=== PATIENT | male | born 1965 | race Caucasian/White ===

== ENCOUNTER 2018-07-06 08:18 | Day surgery (SDC) | payer OTHER, SELFPAY ==
--- NOTE | 2018-07-06 06:42 | W.PM.OP ---
Operative Note DATE OF PROCEDURE: 07/06/18 PRE-OP DIAGNOSIS: Dysphagia POST-OP DIAGNOSIS: other (Gastritis, gastric polyp, esophagitis) PROCEDURE: EGD with biopsies SURGEON: Gemini Mccauley ANESTHESIA: MAC (Fela Ruiz CRNA) ESTIMATED BLOOD LOSS: 3 PATHOLOGY: other (Antrum bx, GE junction bx) COMPLICATIONS: None Patient was transported to: same day Patient's condition: stable Indications: Mr. angeles is a 53-year-old gentleman who was seen in the office to discuss an upper endoscopy. The patient complains of dysphasia. Risks, benefits, complications of the procedure were reviewed with him and he wished to proceed. No guarantees were given or implied. Findings: mild gastritis moderate esophagitis Procedure Description: After informed consent was obtained the patient was taken to the procedure room and placed in a supine position. Monitors were applied and a time out was done. The patients name, date of , procedure, allergies to medications and metal in their body was reviewed. The patient was then sedated. Once sedated and comfortable the bite block was placed. The scope was then introduced into the orpharynx. The oropharynx was grossly intact. The scope was advanced into the esophagus. Proximal and mid esophagus were normal. Distal esophagus showed inflammation. Z line was at 40 cm at the lip. It was slightly irregular. The scope was advanced into the stomach and through the pylorus into the duodenum. The duodenum was normal. The scope was retracted back into the stomach. Biopsies of the antrum were done to rule out H. pylori. The scope was retroflexed. The cardia and fundus were normal. There was one polyp in the body of the stomach and this was removed with cold forceps. The scope was retracted back into the esophagus and biopsies of the GE junction were done for surveillance of his Reese's. The scope was removed. The patient tolerated the procedure well and there were no immediate complications. Follow up: The patient should follow up in 3 weeks in the office.
--- NOTE | 2018-07-06 06:53 | PDOC.DSDIS_ITS ---
Discharge Plan Disposition Patient Disposition: HOME Discharge Details Attending Provider: Gemini Mccauley Primary Care Provider: Parish Russell Home Meds and New Rx's Prescriptions: New ranitidine HCl 300 mg tablet 300 mg PO QAM Qty: 30 RF: 2 Continue atorvastatin 40 mg tablet 40 mg PO HS RF: 0 azithromycin 250 mg tablet See Label Instructions PO .COMPLEX Qty: 6 RF: 0 divalproex [Depakote ER] 500 mg tablet extended release 24 hr 1,000 mg PO DAILY Qty: 90 RF: 3 carbamazepine 200 mg tablet extended release 12 hr 200 mg PO DAILY Qty: 90 RF: 3 aspirin 81 MG tablet,chewable 81 mg PO DAILY Qty: 30 RF: 0 Changed pantoprazole 40 MG tablet,delayed release (DR/EC) 40 mg PO HS 90 Days Qty: 180 RF: 3 Discharge Instructions Instructions: Upper Endoscopy (DC), Gastritis (DC), Diet for Stomach Ulcers and Gastritis (GEN), Esophagitis (DC) Additional Instructions: Findings: Mild inflammation of the stomach Gastric polyp Moderate inflammation of the esophagus Follow up: 3 weeks New Medications: Zantac 300 mg in the morning Pantoprazole 40 mg in the morning Please call if you develop: fevers >101.5 Nausea or Vomiting Abdominal pain that is not transient 1. Because there will be medication in your system for the next 24 hours, you may feel a little sleepy. Your coordination will be affected. Therefore: a. Do not drive or operate dangerous equipment for 24 hours. b. Do not drink alcohol beverages for 24 hours (not even beer). c. Plan to go home and rest for the day. 2. Generally there are no restrictions on your activity after a day or so has gone by, but you may feel a bit fatigued for a few days. 3 After you arrive home you may have a light meal and return to a normal diet as you can tolerate it without feeling sick to your stomach. 4. After surgery, you may feel pain or discomfort. This should be only transient , but if it persists please contact your doctor. 5. If there are any questions regarding the findings of your procedure, please feel free to contact your doctor. 6. If you are unable to contact your doctor with a problem, contact the hospital at [phone]. 7. Continue all your regular medications unless directed otherwise. I understand the above instructions and have no questions. Signature of Patient or Responsible Adult Escort Date/Time Name of Responsible Adult Escort Signature of Nurse Date/Time Activity:: Activity as Tolerated Diet:: low acid diet Discharge Orders Discharge Orders: Discharge Order (Routine); Ordered 07/06/18 Ordered By: Gemini Mccauley DS: Diagnosis Discharge Diagnosis (1) Gastroesophageal reflux disease with esophagitis: Status: Acute (2) Barretts esophagus: Status: Chronic
[2018-07-06 08:29] VITALS: BP 127/73; PULSE 80; RESP 16; TEMP 36.6; O2SAT 96
[2018-07-06] MEDS: Lactated Ringers 1,000 ML 80 ML IV (09:00)
--- NOTE | 2018-07-06 10:28 | STOM_PTH ---
PATIENT: Donavan Pool LOC: [facility] U#:[id number] AGE/SX: 53/M ROOM: RE07/06/[address]: Gemini Mccauley MD : [id number] BED: DIS: 07/06/2018 SPEC #: [id number] RECD: 07/06/18 12:41 STATUS: [facility] REQ #: [id number] VITA: 07/06/18 10:[address]: Gemnii Mccauley DEPT: Surgical Specimen RECD BY: Misty Scott ENTERED: 07/06/18 12:42 SP TYPE: STOMACH OTHR DR: Parish Russell MD Tissues: 1 - STOMACH BIOPSY 2 - STOMACH BIOPSY 3 - ESOPHAGUS BIOPSY Procedures: GROSS AND MICRO LEVEL 4 Comments: [id number]
[2018-07-06 11:10] VITALS: BP 137/91; PULSE 62; RESP 16; TEMP 35.9; O2SAT 98
== END 2018-07-06 11:15 | disposition home or self-care (01) ==
LOC: SUR 08:18
PROVIDERS: PCP Family Medicine; Visit Provider Surgery
PROC: 0DJ68ZZ Inspection of Stomach, Via Natural or Artificial Opening Endoscopic (ICD-10-PCS; CPT 43235; principal; 2018-07-06 10:00)
DX: R13.10 Dysphagia, unspecified (principal); K22.70 Barrett's esophagus without dysplasia; K31.89 Other diseases of stomach and duodenum
CPT/HCPCS: 43239; 88305

== ENCOUNTER 2019-12-20 02:35 | Outpatient (CLI) | payer OTHER, SELFPAY ==
[2019-12-20 15:54] LABS: VALPROIC ACID 23.1 ug/mL (50-100)
[2019-12-20 15:55] LABS: TROPONIN-I 3.1 ug/mL (4.0-12.0)
== END 2019-12-20 02:55 ==
PROVIDERS: PCP Family Medicine; Visit Provider Family Medicine
DX: G40.909 Epilepsy, unspecified, not intractable, without status epilepticus (principal); Z51.81 Encounter for therapeutic drug level monitoring; Z79.899 Other long term (current) drug therapy
CPT/HCPCS: 36415; 80156; 80164

== ENCOUNTER 2020-01-18 22:40 | Outpatient (REF) | payer OTHER, SELFPAY ==
[2020-01-18 20:12] LABS: HGB 15.1 g/dL (13.5-17.5); Mean Corp. HGB Concentration 33.6 g/dL (32.0-36.0); Mean Corpuscular Volume 86.4 fL (80-95); Mean Platelet Volume 11.1 fL (8.0-11.0); Platelet Count 224 x1000/uL (130-400); RBC 5.21 m/cumm (4.50-6.00); RBC Distribution Width 12.6 % (11.8-14.1); White Blood Cell Count 6.17 k/cumm (4.4-10.8)
[2020-01-18 20:20] LABS: Anion Gap 9.5 mmol/L (3-11); BUN 14 mg/dL (7-18); CO2 25.5 mmol/L (21.0-32.0); CREATININE 0.95 mg/dL (0.70-1.30); Calcium 9.3 mg/dL (8.5-10.1); Chloride 103 mmol/L (98-107); Glucose 96 mg/dL (74-106); Potassium 4.2 mmol/L (3.5-5.1); Sodium 138 mmol/L (136-145)
== END 2020-01-18 23:00 ==
LOC: LBN 22:40
PROVIDERS: PCP Family Medicine; Visit Provider Nurse Practitioner
DX: R10.9 Unspecified abdominal pain (principal)
CPT/HCPCS: 80048; 85027

== ENCOUNTER 2020-06-29 12:12 | Emergency (ER) | payer OTHER, SELFPAY ==
[2020-06-29 12:16] VITALS: BP 139/96; PULSE 86; RESP 16; TEMP 36.9; O2SAT 95
--- NOTE | 2020-06-29 12:45 | DI.CT_ITS ---
EXAM: CT HEAD WO CLINICAL HISTORY: headache, r/o acute process. TECHNIQUE: Imaging Protocol: Axial computed tomography images with coronal and sagittal reformatted images were created and reviewed COMPARISON: No exams were available for comparison FINDINGS: Ventricles and Extra axial spaces: Normal in size and morphology for the patient's age. Hemorrhage: None. Cerebral parenchyma: Normal. Midline shift: None. Brainstem/Cerebellum: Normal. Calvarium: Normal. Visualized Paranasal sinuses/Mastoids: Clear. Soft Tissues: Unremarkable. IMPRESSION: No acute intracranial process. RADIATION DOSE DELIVERED: 734.78mGy.cm Total DLP DATA REPOSITORY: All CT scans at this facility are submitted to the National Radiology Data Registry (NRDR) Dose Index Registry (DIR) with the [employer] (ACR). RADIATION OPTIMIZATION: All CT scans at this facility use at least one of these dose optimization te chniques: automated exposure control; mA and/or kV adjustment per patient size (includes targeted exa ms where dose is matched to clinical indication); or iterative reconstruction.
--- NOTE | 2020-06-29 12:49 | W.ED.GENAD ---
Discharge Plan Disposition Patient Disposition: HOME Condition: Improving Discharge Details Clinical Impression: Headache, Sciatica Primary Care Provider: Parish Russell ED Provider: Lyla Gauthier Home Meds and New Rx's Prescriptions: New methocarbamol 500 mg tablet 500 mg PO Q6H PRN (Reason: muscle spasm) Qty: 14 RF: 0 Continued albuterol sulfate [Ventolin HFA] 90 mcg/actuation HFA aerosol inhaler 1 - 2 puff IH Q4H PRN (Reason: shortness of breath or wheezing) Qty: 8.5 RF: 0 fluticasone propionate 50 mcg/actuation spray,suspension 2 spray LINDSAY DAILY RF: 0 divalproex [Depakote ER] 500 mg tablet extended release 24 hr 1,000 mg PO DAILY Qty: 180 RF: 3 pantoprazole 40 mg tablet,delayed release (DR/EC) 40 mg PO HS 90 Days Qty: 180 RF: 3 carbamazepine 200 mg tablet extended release 12 hr 200 mg PO DAILY Qty: 90 RF: 3 Discharge Instructions Instructions: Sciatica (ED), Back Pain (ED), General Headache (ED) Additional Instructions: Drink plenty of fluids and get plenty of rest. Alternate ice and heat to the affected area(s) several times daily for 20 minutes at a time. Alternate tylenol and motrin as needed and directed for pain. Take the muscle relaxer to help with your lower back pain for pain not relieved with Tylenol or Motrin. Follow-up with your primary care doctor in 1 week. Return to the emergency department with any worsening or new concerning symptoms. Stand Alone Forms: Work Release Discharge Data Discharge Physician: Lyla Gauthier Medical Decision Making 1220 -- 55-year-old male with a history of GERD, hyperlipidemia, seizure disorder presents for headache, nausea and lower back pain with radiation to his left leg for the past 2 days. Vitals within normal limits. Patient appears uncomfortable but nontoxic. Normal ENT exam. Lungs clear. No focal deficits. No meningeal signs. Neurovascular intact. Differential diagnosis includes viral syndrome, flu shot reaction, dehydration, etc. History and presentation not consistent with acute CVA. Will place an IV, bolus IV fluids, screening labs, CT head, and give a dose of Decadron, Compazine, Benadryl and reassess. CT head negative. Patient feels slightly better. Will give a dose of Toradol and finish IV fluids and reassess. 1400 --labs and imaging reviewed and unremarkable. Normal white blood cell count. ESR 13. CRP 0.66. CT head negative. Patient reassessed and he feels slightly better. Appears quite sleepy, suspect from the Benadryl. Will give additional IV fluids and Toradol and reassess. 1530 --patient reassessed and he states his headache is decreased from 8/10-/. Patient states he still feels pressure on the top of his head. He denies any visual changes. He denies thunderclap sudden onset quality to headache so doubt SAH. He has normal white blood cell count and afebrile without report of neck pain or fever or meningeal signs so doubt meningitis. Patient was able to ambulate to and from the bathroom. He still feels slightly uncomfortable but nontoxic. Will give another liter of IV fluids and obtain a CTA head and neck and reassess. 174 --CTA head and neck negative for acute findings. Patient reassessed and he feels better and feels good to go home. A dose of IV Tylenol given to help with continued headache. Medical Records Medical records reviewed: Yes I reviewed the patient's medical records. Imaging Data Radiologic Study: Radiologist's impression: CT HEAD WO CLINICAL HISTORY: headache, r/o acute process. TECHNIQUE: Imaging Protocol: Axial computed tomography images with coronal and sagittal reformatted images were created and reviewed COMPARISON: No exams were available for comparison FINDINGS: Ventricles and Extra axial spaces: Normal in size and morphology for the patient's age. Hemorrhage: None. Cerebral parenchyma: Normal. Midline shift: None. Brainstem/Cerebellum: Normal. Calvarium: Normal. Visualized Paranasal sinuses/Mastoids: Clear. Soft Tissues: Unremarkable. IMPRESSION: No acute intracranial process. Lab Data Lab results reviewed: Yes I reviewed the patient's lab results. Labs: Laboratory Tests Range/Units 06/29/20 06/29/20 12:47 13:49 WBC (4.4-10.8) 10^3/uL 8.69 RBC (4.36-5.78) 10^6/uL 5.39 Hgb (13.5-17.5) g/dL 15.8 Hct (40.0-50.0) % 47.4 MCV (80-95) fL 87.9 MCH (27.0-33.0) pg 29.3 MCHC (32.0-36.0) % 33.3 RDW (11.8-14.1) % 12.1 Plt Count (130-400) 10^3/uL 220 MPV (8.0-11.0) fL 10.4 Immature Gran % 0.2 Neutrophils % 70.9 Lymphocytes % 15.2 Monocytes % 12.4 Eosinophils % 0.8 Basophils % 0.5 Nucleated RBC % % 0 Absolute Neutrophils (1.2-6.7) 10^3/uL 6.16 Absolute Lymphocytes (1.2-3.4) 10^3/uL 1.32 Absolute Monocytes (0.1-0.8) 10^3/uL 1.08 H Absolute Eosinophils (0.0-0.7) 10^3/uL 0.07 Absolute Basophils (0.0-0.2) 10^3/uL 0.04 ESR (1-20) mm/hr 13 Sodium (136-145) mmol/L 134 L Potassium (3.5-5.1) mmol/L 3.7 Chloride (98-107) mmol/L 102 Carbon Dioxide (21.0-32.0) mmol/L 22.2 Anion Gap (3-11) mmol/L 9.8 BUN (7-18) mg/dL 14 Creatinine (0.70-1.30) mg/dL 0.94 Estimated GFR/1.73 m2 (mL/min/1.73m2) >= 60.00 Glucose (74-106) mg/dL 96 Calcium (8.5-10.1) mg/dL 8.5 Total Bilirubin (0.2-1.0) mg/dL 0.6 AST (15-37) U/L 25 ALT (16-63) U/L 41 Alkaline Phosphatase (46-116) U/L 82 C-Reactive Protein (0.0-0.3) mg/dL 0.66 H Total Protein (6.4-8.2) g/dL 7.5 Albumin (3.4-5.0) g/dL 3.7 HPI General Mode of arrival: ambulatory. Date/Time Provider Initiated Documentation: 06/29/20 12:13. Limitations to Documentation: no limitations. Information obtained by: patient. HPI Narrative: Pt is a 55yo M who presents to the ED w/ a c/o headache for the past 2 days. Patient states the headache is throbbing and sharp located on the top of his head and currently 8/10. He last took Tylenol last night without relief. He states he has had headaches in the past before but states this is more intense and lasting longer than usual. He has not taken any medication for pain today. He also admits to nausea and pain behind both eyes. He states he went to work yesterday but not today. Patient states he drank 2 cups of coffee and one bottle of water today but only one sip of water today. He also admits to lower back pain with radiation down his left leg for the past several days. He states he has a history of lower back pain and denies any recent injury. He denies fever, blurry vision, ear pain, sore throat, cough, shortness of breath, chest pain, abdominal pain, urinary symptoms, bowel or bladder incontinence, saddle anesthesia, leg weakness or numbness. Related Data Home Medications Medication Instructions Recorded Confirmed albuterol sulfate 90 mcg/actuation 1 - 2 puff IH Q4H PRN #8.5 gm 08/11/19 06/29/20 aerosol inhaler fluticasone propionate 50 2 spray LINDSAY DAILY gm 08/18/19 06/29/20 mcg/actuation nasal spray,suspension divalproex 500 mg tablet,extended 1,000 mg PO DAILY #180 tab-cap 02/01/20 06/29/20 release 24 hr pantoprazole 40 mg tablet,delayed 40 mg PO HS 90 Days #180 tab-cap 03/15/20 06/29/20 release carbamazepine 200 mg 200 mg PO DAILY #90 tab-cap 03/17/20 06/29/20 tablet,extended release,12 hr methocarbamol 500 mg PO Q6H PRN #14 tab 06/29/20 Previous Rx's Medication Instructions Recorded albuterol sulfate 90 mcg/actuation 1 - 2 puff IH Q4H PRN #8.5 gm 08/11/19 aerosol inhaler divalproex 500 mg tablet,extended 1,000 mg PO DAILY #180 tab-cap 02/01/20 release 24 hr pantoprazole 40 mg tablet,delayed 40 mg PO HS 90 Days #180 tab-cap 03/15/20 release carbamazepine 200 mg 200 mg PO DAILY #90 tab-cap 03/17/20 tablet,extended release,12 hr methocarbamol 500 mg PO Q6H PRN #14 tab 06/29/20 Allergies Allergy/AdvReac Type Severity Reaction Status Date / Time pantoprazole Allergy Intermediate shortness Verified 06/29/20 12:20 of breath, chest pain General Stated Complaint: Headache XAVIER: 2 Review of Systems All systems reviewed & are unremarkable except as noted in HPI and below Constitutional Constitutional: Reports as per HPI, Denies chills, Denies fever(s) and Reports headache(s) Eyes Eyes: Denies blurry vision ENT Ears, Nose, Mouth, and Throat: Denies dizziness, Reports headache(s), Denies sore throat and Denies throat swelling Cardiovascular Cardiovascular: Denies chest pain and Denies dyspnea Respiratory Respiratory: Denies cough and Denies dyspnea Gastrointestinal Gastrointestinal: Denies abdominal pain, Denies diarrhea, Reports nausea and Denies vomiting Genitourinary Genitourinary: Denies hematuria and Denies dysuria Musculoskeletal Musculoskeletal: Denies back pain and Denies numbness Integumentary/Breasts Skin/Breast: Denies lesions and Denies rash Neurologic Neurologic: Denies dizziness, Reports headache(s), Denies localized weakness and Denies numbness Allergic/Immunologic Allergic/Immunologic: Denies throat swelling [facility] Medical History (Updated 06/29/20 @ 18:05 by Lyla aGuthier DO) Abdominal pain (02/18/13) Barretts esophagus Bone bruise (09/11/15) Chest pain (11/06/17) precordial Erectile dysfunction of organic origin (07/29/16) Gastroesophageal reflux disease with esophagitis Generalized epilepsy Hiatal hernia Hyperlipidemia Seizure disorder (02/26/13) same meds check levels Small bowel obstruction (02/26/13) 02/18 Tendonitis, Achilles, left (11/24/17) Surgical History EGD - MAC (04/02/13) [facility] [place] EGD - MAC (07/24/16) [facility] [place] History of esophagogastroduodenoscopy (EGD) (~07/06/18) Family History Mother No problems noted. Father No problems noted. Sister No problems noted. Sister No problems noted. Grandfather Personal history of malignant neoplasm COLON Grandfather No problems noted. Grandmother Diabetes Grandmother No problems noted. Daughter No problems noted. 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 What type of physical activity do you participate in: none Do you feel safe in your relationship?: Yes Exam Const General: cooperative and no acute distress Orientation: alert, awake and oriented x3 HENMT Head: normal to inspection Ears: hearing grossly normal bilaterally, external ears normal and TM's normal bilaterally General nose exam: external nose normal Face and sinus: normal facial exam Mouth: oral mucosae normal Teeth and gingiva: dentition normal Throat: posterior oropharynx normal Eyes General: appearance normal, both eyes and all related structures Eyelids: eyelids normal Pupils: PERRL EOM: EOM intact bilaterally Neck Neck: normal visual inspection Lymphatic: no lymphadenopathy noted Chest Chest: normal inspection of the chest Resp Effort & Inspection: normal respiratory effort and able to speak in complete sentences Auscultation: clear to auscultation bilaterally Cardio Rate: regular rate Rhythm: regular rhythm GI Inspection: normal to inspection Palpation: soft, not firm, no guarding, no hepatosplenomegaly, no masses and nontender Auscultation: normal bowel sounds Back/Spine/Pelvis Back: no CVA tenderness Skin General skin exam: no rashes or lesions noted Neuro General: patient alert, patient awake, patient oriented x3, moves all extremities, no meningeal signs and no focal motor deficits Cognition: normal cognition Speech: speech normal Gait: normal gait Motor: muscle tone normal throughout and strength 5/5 throughout Sensory Exam: no sensory deficits noted Extrem General: normal to inspection, full ROM, capillary refill normal and no edema Psych Appearance: grossly normal Mental Status: mental status grossly normal Speech and Movement: speech and movement normal Affect: normal affect Thought Process: normal Course Vital Signs Vital signs: Vital Signs Temperature 98.4 F 06/29/20 12:16 Pulse 86 06/29/20 12:16 Respiratory Rate 16 06/29/20 12:16 Blood Pressure 139/96 H 06/29/20 12:16 Pulse Oximetry 95 06/29/20 12:16 Temperature 98.4 F 06/29/20 12:16 Temperature Source Skin 06/29/20 12:16 Pulse 86 06/29/20 12:16 Respiratory Rate 16 06/29/20 12:16 Respiratory Effort Non-Labored 06/29/20 12:16 Blood Pressure 139/96 H 06/29/20 12:16 Blood Pressure Position Sitting 06/29/20 12:16 Pulse Oximetry 95 06/29/20 12:16 Oxygen Delivery Method Room Air 06/29/20 12:16 Oxygen Flow Rate 0 06/29/20 12:16 Pain Level 8 06/29/20 12:16
[2020-06-29 13:04] LABS: Abs Immature Grans 0.02 10^3/uL (0.0-0.06); Absolute Basophil Count 0.04 10^3/uL (0.0-0.2); Absolute Eosinophil Count 0.07 10^3/uL (0.0-0.7); Absolute Lymphocyte Count 1.32 10^3/uL (1.2-3.4); Absolute Monocyte Count 1.08 10^3/uL (0.1-0.8); Absolute Neutrophil Count 6.16 10^3/uL (1.2-6.7); Basophils % 0.5; Eosinophils % 0.8; HCT 47.4 % (40.0-50.0); HGB 15.8 g/dL (13.5-17.5); Immature Grans % 0.2; Lymphocytes % 15.2; MCH 29.3 pg (27.0-33.0); MCHC 33.3 % (32.0-36.0); MCV 87.9 fL (80-95); MPV 10.4 fL (8.0-11.0); Monocytes % 12.4; Neutrophils % 70.9; Nucleated RBC 0 %; Platelet Count 220 10^3/uL (130-400); RBC 5.39 10^6/uL (4.36-5.78); RDW 12.1 % (11.8-14.1); WBC 8.69 10^3/uL (4.4-10.8)
[2020-06-29] MEDS: Normal Saline 1,000 ML 1000 ML IV ×3 (13:17→16:06)
[2020-06-29] MEDS: Prochlorperazine 10 MG/2 ML VIAL IVP (13:17)
[2020-06-29] MEDS: diphenhydrAMINE 50 MG/ML VIAL 25 MG IVP (13:17)
[2020-06-29] MEDS: Dexamethasone 10 MG/ML VIAL IVP (13:17)
[2020-06-29 13:42] LABS: ESR 13 mm/hr (1-20)
[2020-06-29 14:08] LABS: ALT 41 U/L (16-63); AST 25 U/L (15-37); Albumin 3.7 g/dL (3.4-5.0); Alkaline Phosphatase 82 U/L (46-116); Anion Gap 9.8 mmol/L (3-11); BUN 14 mg/dL (7-18); Bilirubin, Total 0.6 mg/dL (0.2-1.0); C-Reactive Protein 0.66 mg/dL (0.0-0.3); CO2 22.2 mmol/L (21.0-32.0); CREATININE 0.94 mg/dL (0.70-1.30); Calcium 8.5 mg/dL (8.5-10.1); Chloride 102 mmol/L (98-107); Glucose 96 mg/dL (74-106); Potassium 3.7 mmol/L (3.5-5.1); Sodium 134 mmol/L (136-145); Total Protein 7.5 g/dL (6.4-8.2)
[2020-06-29] MEDS: Ketorolac 30 MG/ML VIAL IVP (14:13)
[2020-06-29 14:31] VITALS: BP 160/91; PULSE 91; RESP 16; TEMP 37.1; O2SAT 98
[2020-06-29] MEDS: Normal Saline - Diluent 50 ML VIAL IV (16:49)
[2020-06-29] MEDS: Omnipaque 350 MG/ML 100 ML BTL IJ (16:50)
--- NOTE | 2020-06-29 17:04 | DI.VRAD_ITS ---
PROCEDURE INFORMATION: Exam: CT Angiography Head With Contrast Exam date and time: 06/29/2020 3:56 PM Age: 55 years old Clinical indication: Pain; Headache TECHNIQUE: Imaging protocol: Computed tomography angiography of the head with intravenous contrast. 3D rendering (Not supervised by radiologist): MIP and/or 3D reconstructed images were created by the technologist. Radiation optimization: All CT scans at this facility use at least one of these dose optimization techniques: automated exposure control; mA and/or kV adjustment per patient size (includes targeted exams where dose is matched to clinical indication); or iterative reconstruction. Contrast material: OMNIPAQUE 350; Contrast volume: 85 ml; Contrast route: INTRAVENOUS (IV); COMPARISON: CT HEAD WO 06/29/2020 1:29 PM FINDINGS: ANTERIOR CIRCULATION: Right internal carotid artery: Unremarkable. Intracranial segment is patent with no significant stenosis. No aneurysm. Right middle cerebral artery: Unremarkable. No occlusion or significant stenosis. No aneurysm. Right anterior cerebral artery: Unremarkable. No occlusion or significant stenosis. No aneurysm. Left internal carotid artery: Unremarkable. Intracranial segment is patent with no significant stenosis. No aneurysm. Left middle cerebral artery: Unremarkable. No occlusion or significant stenosis. No aneurysm. Left anterior cerebral artery: Unremarkable. No occlusion or significant stenosis. No aneurysm. POSTERIOR CIRCULATION: Right vertebral artery: Unremarkable. No occlusion or significant stenosis. No aneurysm. Left vertebral artery: Unremarkable. No occlusion or significant stenosis. No aneurysm. Basilar artery: Unremarkable. No occlusion or significant stenosis. No aneurysm. Right posterior cerebral artery: Unremarkable. No occlusion or significant stenosis. No aneurysm. Left posterior cerebral artery: Unremarkable. No occlusion or significant stenosis. No aneurysm. Brain: No definite mass, mass effect, or midline shift. Cerebral ventricles: Normal. No ventriculomegaly. Bones/joints: Unremarkable. No acute fracture. Soft tissues: Unremarkable. IMPRESSION: No large vessel stenosis or occlusion. PROCEDURE INFORMATION: Exam: CT Angiography Neck With Contrast Exam date and time: 06/29/2020 3:56 PM Age: 55 years old Clinical indication: Pain; Headache TECHNIQUE: Imaging protocol: Computed tomography angiography of the neck with intravenous contrast. 3D rendering (Not supervised by radiologist): MIP and/or 3D reconstructed images were created by the technologist. Radiation optimization: All CT scans at this facility use at least one of these dose optimization techniques: automated exposure control; mA and/or kV adjustment per patient size (includes targeted exams where dose is matched to clinical indication); or iterative reconstruction. Contrast material: OMNIPAQUE 350; Contrast route: INTRAVENOUS (IV); COMPARISON: CT HEAD WO 06/29/2020 1:29 PM FINDINGS: Right common carotid artery: No stenosis. No dissection or occlusion. Right internal carotid artery: No stenosis of the extracranial segment. No dissection or occlusion. Right external carotid artery: No occlusion or stenosis of the origin. Right vertebral artery: No stenosis. No dissection or occlusion. Left common carotid artery: No stenosis. No dissection or occlusion. Left internal carotid artery: No stenosis of the extracranial segment. No dissection or occlusion. Left external carotid artery: No occlusion or stenosis of the origin. Left vertebral artery: No stenosis. No dissection or occlusion. Bones/joints: No acute fracture. Soft tissues: Normal. No significant soft tissue swelling. IMPRESSION: No stenosis or occlusion. REFERENCES: NASCET CRITERIA. The degree of internal carotid artery stenosis is based on NASCET criteria. Normal is no stenosis. Mild is less than 50% stenosis. Moderate is 50-69% stenosis. Severe is 70% to 99% stenosis. Total occlusion is no detectable patent lumen. Dictated and Authenticated by: Dinora Turner MD. Ordering:TEN Arita MD
[2020-06-29] MEDS: ACETAMINOPHEN 1,000 MG/100 ML BTL 400 MG IVPB (17:29)
[2020-06-29 18:00] VITALS: BP 141/91; PULSE 92; RESP 16; TEMP 36.9; O2SAT 98
--- NOTE | 2020-06-29 19:48 | DI.CT_ITS ---
EXAM: CT BRAIN NECK CTA CLINICAL HISTORY: headache, r/o acute process. TECHNIQUE: Imaging Protocol: Axial CT angiography was performed with multi-slice acquisition and mu lti-planar and/or 3D reconstructions. CONTRAST MATERIAL: Intravenous: Omnipaque 350 Contrast volume:85 cc COMPARISON: CT CHEST FOR PULMONARY EMBOLUS from 11/06/2017 FINDINGS: CTA Brain W: Internal Carotid Arteries: Petrous: Normal. Cavernous: Normal. Cerebral: Normal. Middle Cerebral Arteries: Right: No aneurysm, occlusion or significant stenosis. Left: No aneurysm, occlusion or significant stenosis. Anterior Cerebral Arteries: Right: No aneurysm, occlusion or significant stenosis. Left: No aneurysm, occlusion or significant stenosis. Posterior cerebral Arteries: Right: No aneurysm, occlusion or significant stenosis. Left: No aneurysm, occlusion or significant stenosis. Vertebral Arteries: Right: No aneurysm, occlusion or significant stenosis. Left: No aneurysm, occlusion or significant stenosis. Basilar Artery: No aneurysm, occlusion or significant stenosis. CTA Neck W: Common Carotid: Right: No aneurysm, dissection, occlusion or significant stenosis. Left: No aneurysm, dissection, occlusion or significant stenosis. External Carotid: Right: No aneurysm, dissection, occlusion or significant stenosis. Left: No aneurysm, dissection, occlusion or significant stenosis. Internal Carotid: Right: No aneurysm, dissection, occlusion or significant stenosis. Left: No aneurysm, dissection, occlusion or significant stenosis. Vertebral Artery: Right: No aneurysm, dissection, occlusion or significant stenosis. Left: No aneurysm, dissection, occlusion or significant stenosis. Lung Apices: Normal. Bones: Normal. Soft Tissues: Normal. IMPRESSION: 1. Normal CTA examination of the [place]. 2. Normal CTA examination of the neck. RADIATION DOSE DELIVERED: 332.35mGy.cm Total DLP DATA REPOSITORY: All CT scans at this facility are submitted to the National Radiology Data Registry (NRDR) Dose Index Registry (DIR) with the [employer] (ACR). RADIATION OPTIMIZATION: All CT scans at this facility use at least one of these dose optimization te chniques: automated exposure control; mA and/or kV adjustment per patient size (includes targeted exa ms where dose is matched to clinical indication); or iterative reconstruction.
== END 2020-06-29 18:10 | disposition home or self-care (01) ==
PROVIDERS: Emergency Provider Physician Assistant; PCP Family Medicine
DX: M54.42 Lumbago with sciatica, left side (principal); R51.9 Headache, unspecified; R11.0 Nausea
CPT/HCPCS: 36415; 70496; 70498; 80053; 85652; 96361; 96365; 96375; 99285; 70450; 85025; 86140; J0131; J0780; J1100; J1200; J1885; J3490

== ENCOUNTER 2020-07-02 20:32 | Emergency (ER) | payer OTHER, SELFPAY ==
[2020-07-02 20:44] VITALS: BP 131/80; PULSE 78; RESP 16; O2SAT 93
--- NOTE | 2020-07-02 20:45 | DI.CT_ITS ---
EXAM: CT LUMBAR SPINE W CLINICAL HISTORY: headache, altered, seizure, positive R babinsk, L4 TECHNIQUE: COMPARISON: CT CT CERVICAL SPINE W from 07/02/[address] THORACIC SPINE W from 07/02/2020 FINDINGS: CT examination lumbar spine was performed with intravenous infusion of 100 cc of Omnipaque 350. No l umbar spine fracture. Mild changes noted. No paraspinal or intraspinal mass lesion or enhancing les ion. Thoracic spine CT was also performed. Mild anterior compression fracture of T8, loss of tendon 20 pe rcent of height anteriorly, uncertain age, probably old. There are mild degenerative changes through out the thoracic spine. No mass lesion or enhancing lesion seen. Thoracic aorta appears intact as v isualized with no evidence of dissection. Cervical spine CT was also performed. There are moderate degenerative changes of the cervical spine. There is mild central canal spinal stenosis at C5-6 with bilateral apparent neural foraminal stenos is. No fracture identified in the cervical region.. No mass lesion or enhancing lesion seen. IMPRESSION: No evidence of acute process involving cervical, thoracic, or lumbar spine. RADIATION DOSE DELIVERED: Total DLP
[2020-07-02 20:53] VITALS: RESP 16
--- NOTE | 2020-07-02 20:56 | ED.GENADUL_ITS ---
Discharge Plan Disposition Patient Disposition: [facility] Condition: Serious Discharge Details Chief Complaint: AMS/LOC Clinical Impression: Suspected infectious meningitis, Back pain Primary Care Provider: Parish Russell ED Provider: Aki Sung Home Meds and New Rx's Prescriptions: No Action albuterol sulfate [Ventolin HFA] 90 mcg/actuation HFA aerosol inhaler 1 - 2 puff IH Q4H PRN (Reason: shortness of breath or wheezing) Qty: 8.5 RF: 0 fluticasone propionate 50 mcg/actuation spray,suspension 2 spray LINDSAY DAILY RF: 0 divalproex [Depakote ER] 500 mg tablet extended release 24 hr 1,000 mg PO DAILY Qty: 180 RF: 3 pantoprazole 40 mg tablet,delayed release (DR/EC) 40 mg PO HS 90 Days Qty: 180 RF: 3 carbamazepine 200 mg tablet extended release 12 hr 200 mg PO DAILY Qty: 90 RF: 3 methocarbamol 500 mg tablet 500 mg PO Q6H PRN (Reason: muscle spasm) Qty: 14 RF: 0 Medical Decision Making 55-year-old male with past medical history of seizures on carbamazepine and Depakote, Reese's esophagus, high cholesterol, who presents today for evaluation of headache, seizures, and altered mental status. Patient was seen in the emergency department 3 days ago for evaluation of headache that had been present for the last day or so at that. He had a mild fever of 100 at home, but no evidence of other significant infection here. CT scan at that time was negative for acute process, his ESR and CRP were equivocal, however after medications he felt much better and requested not to have the lumbar puncture performed at that time. He was discharged home. Since coming home his headache continued until today when he had 2 seizures, both times he bit his tongue, urinated, defecated, and the seizures lasted about 10 minutes total with a tonic-clonic motion. Since his last seizure which occurred 30 minutes prior to arrival he has been notably altered. states that over the last 24 to 48 hours he has been notably imbalance, confused, and not acting right. notes that he has not had a seizure in over 10 years. He is taking all of his medications as directed. denies any falls or traumas. Of note back in March states that he did fall and hurt his back and has had mild lower back pain ever since then. Otherwise no new recent traumas, bites, rashes, or lesions. No other complaints at this time. Exam demonstrates evidence of an upward Babinski on the right, downgoing on the left, midline L3-L4-L5 and S1 pain, positive Kernig's and Brudzinski's, intact sensation around the groin, no signs of focal saddle anesthesia. Patient does have mild to moderate ataxia and is confused. Additionally he has differentially oval weakness in the right lower extremity when compared to the left. Differential is highest for spinal epidural abscess, meningitis, and notably less likely for brain bleed especially with a negative CT scan before. However with his new neurologic findings, I am very concerned and do feel that repeat imaging is indicated. No MRI currently available. Will get CT scan of the head thoracic lumbar and cervical spine with contrast, with his subjective fever at home, and with his elevated ESR and CRP on his last visit, I am certainly concerned for an infectious etiology, I do feel that time is important, and we will start vancomycin cefepime metronidazole and ampicillin which will cover potential meningitis bacterial causes, as well as spinal epidural abscess causes. I do feel that it would not be in the patient's best interest to wait for lumbar puncture before starting these. Especially with his rapidly deteriorating status regards to compared to his last visit. He has no rashes or other signs of viral etiology at this time. We also loaded with 2 g of Keppra as he has had 2 seizures in the last 12 hours. Additionally the patient does have a small scab on his left neck, previously is uncertain if this is been a tick or not however he did not pull a tick off of it. There is mild redness around this, they will also had a tick and Lyme panel. 10:51 PM Patient's laboratory work-up is returned, mild white count of 12, mild left shift, lactate is 3.7, electrolytes are normal, glucose normal, procalcitonin less than 0.1, influenza negative. Repeat exam continues to demonstrate upward Babinski on the right and downward on the left. Patient's mental status is not changed. We will add a small dose of morphine to help with headache pain control. Pending CT scans, however currently CT scan of the head is negative for acute process, and thoracic spine shows evidence of a mild compression fracture of T8 age-indeterminate. We will still hold off on lumbar puncture until additional imaging has returned. 12:[address] imaging has returned and demonstrates no evidence of significant acute process. There is an old T8 vertebral compression fracture, but this is not where his tenderness is. No other significant abnormalities. Depakote le osbaldo has just returned and this does appear to be low at 5.1, repeat neurologic exam continues to demonstrate notable weakness for the right lower extremity, minimal weakness for the left. He still demonstrates a notable upward Babinski on the right, and now seems to demonstrate an equivocal Babinski on the left but definitely skewing towards downward still. I spoke with [facility] neurosurgery Ms. Ruiz, she recommends transfer for further evaluation but recommends the patient be managed by medicine and/or neurology. I contacted Dr. Bryant of neurology, Dr. Hendrix of medicine, and Dr. Troy Larkin of the emergency department discussed the case with them. Neurology does agree that the patient should receive further evaluation and potential emergent MRI based on concerning exam findings. Since treatment has already been initiated lumbar puncture is felt that it will eventually need to be performed, but with the notable midline tenderness right at the site where the lumbar puncture would be performed will hold off for the time being until further imaging and neurology evaluation performed at [facility]. Antibiotics have already been administered. With the patient's concerning neurologic abnormalities in conjunction with his entire clinical picture it is felt that he does reflect concern for potential emergent neurologic pathology requiring emergent evaluation with further imaging. Patient will be transferred to the emergency department at [facility] for evaluation by neurology team. I have extensively reviewed the treatment plan with the patient. I have addressed all patient concerns at this time. I have also discussed the plan with the admitting physician and they agree with the current assessment and plan and have agreed to assume responsibility for the patient. All parties demonstrate verbal understanding and agreement with our assessment and plan at this time. Currently the patient's temperature has now come down to 98, he continues to oscillate between 98, 99 and 100 ?F. At time of transfer the patient was reassessed and continued to demonstrate current medical stability. No signs of acute respiratory distress requiring intubation, hemodynamic instability requiring pressor support, or rapidly declining mental status. The patient is stable for transport. FINDINGS: Brain: Normal. No hemorrhage. Unremarkable white matter. No mass effect. Cerebral ventricles: No ventriculomegaly. Bones/joints: Unremarkable. No acute fracture. Paranasal sinuses: Visualized sinuses are unremarkable. No fluid levels. Mastoid air cells: Visualized mastoid air cells are well aerated. Soft tissues: Unremarkable. IMPRESSION: No acute intracranial abnormality. Thank you for allowing us to participate in the care of your patient. Dictated and Authenticated by: Prosper Mcclain, FINDINGS: Vertebrae: There is mild superior anterior endplate compression of T8 consistent with a compression fracture. This is age indeterminate, but likely chronic. There is approximately 20% loss of height anteriorly. There is mild anterior wedging of T12 which appears chronic. There is degenerative disc disease at multiple levels. Discs/Spinal canal/Neural foramina: No acute spinal canal stenosis. No foraminal stenosis noted. Soft tissues: Paraspinous soft tissues are unremarkable. No castro paraspinous hematoma. IMPRESSION: 1. Mild compression fracture of T8. Approximately 20% loss of height anteriorly. This is age indeterminate. There are some features that suggest this is chronic. 2. Multilevel degenerative thoracic spine changes. 3. No dislocation or malalignment. Thank you for allowing us to participate in the care of your patient. Dictated and Authenticated by: Prosper Mcclain, IMPRESSION: 1. Multilevel degenerative cervical spine changes. 2. Bilateral moderate to severe foraminal stenosis at C5-C6 from osteophytic encroachment. 3. Moderate spinal canal stenosis at C5-C6 from posterior disc space marginal osteophytes. 4. No fracture. 5. No focal suspicious bone lesions. 6. Soft tissues of the cervical region are unremarkable. Thank you for allowing us to participate in the care of your patient. Dictated and Authenticated by: Prosper Mcclain MD 07/02/2020 10:51 PM Eastern Time ([place] & [place]) FINDINGS: Vertebrae: Minor chronic appearing anterior wedging at T12. No acute fracture or subluxation in the lumbar spine. Discs/Spinal canal/Neural foramina: Minor broad-based disc bulges in the lumbar spine. No castro central canal stenosis is appreciated on CT. [id number] bilateral neural foraminal stenosis at L5-S1. Soft tissues: Unremarkable. IMPRESSION: No acute bony pathology. Minor spondylosis. Thank you for allowing us to participate in the care of your patient. Dictated and Authenticated by: Deonna Diehl MD 07/02/2020 11:29 PM Eastern Time ([place] & [place]) HPI General Date/Time Provider Initiated Documentation: 07/02/20 20:33 . HPI Narrative: 55-year-old male with past medical history of seizures on carbamazepine and Depakote, Reese's esophagus, high cholesterol, who presents today for evaluation of headache, seizures, and altered mental status. Patient was seen in the emergency department 3 days ago for evaluation of headache that had been present for the last day or so at that. He had a mild fever of 100 at home, but no evidence of other significant infection here. CT scan at that time was negative for acute process, his ESR and CRP were equivocal, however after medications he felt much better and requested not to have the lumbar puncture performed at that time. He was discharged home. Since coming home his headache actually continued until today when he had 2 seizures, both times he bit his tongue, urinated, defecated, and the seizures lasted about 10 minutes total with a tonic-clonic motion. Since his last seizure which occurred 30 minutes prior to arrival he has been notably altered. states that over the last 24 to 48 hours he has been notably imbalance, confused, and not acting right. notes that he has not had a seizure in over 10 years. He is taking all of his medications as directed. denies any falls or traumas. Of note back in March states that he did fall and hurt his back and has had mild lower back pain ever since then. Otherwise no new recent traumas, bites, rashes, or lesions. No other complaints at this time. Related Data Home Medications Medication Instructions Recorded Confirmed albuterol sulfate 90 mcg/actuation 1 - 2 puff IH Q4H PRN #8.5 gm 08/11/19 07/02/20 aerosol inhaler fluticasone propionate 50 2 spray LINDSAY DAILY gm 08/18/19 07/02/20 mcg/actuation nasal spray,suspension divalproex 500 mg tablet,extended 1,000 mg PO DAILY #180 tab-cap 02/01/20 07/02/20 release 24 hr pantoprazole 40 mg tablet,delayed 40 mg PO HS 90 Days #180 tab-cap 03/15/20 07/02/20 release carbamazepine 200 mg 200 mg PO DAILY #90 tab-cap 03/17/20 07/02/20 tablet,extended release,12 hr methocarbamol 500 mg PO Q6H PRN #14 tab 06/29/20 07/02/20 Previous Rx's Medication Instructions Recorded albuterol sulfate 90 mcg/actuation 1 - 2 puff IH Q4H PRN #8.5 gm 08/11/19 aerosol inhaler divalproex 500 mg tablet,extended 1,000 mg PO DAILY #180 tab-cap 02/01/20 release 24 hr pantoprazole 40 mg tablet,delayed 40 mg PO HS 90 Days #180 tab-cap 03/15/20 release carbamazepine 200 mg 200 mg PO DAILY #90 tab-cap 03/17/20 tablet,extended release,12 hr methocarbamol 500 mg PO Q6H PRN #14 tab 06/29/20 Allergies Allergy/AdvReac Type Severity Reaction Status Date / Time pantoprazole Allergy Intermediate shortness Verified 07/02/20 20:53 of breath, chest pain General Stated Complaint: AMS/LOC XAVIER: 2 Review of Systems All systems reviewed & are unremarkable except as noted in HPI and below [facility] Medical History (Updated 07/03/20 @ 01:02 by Aki Sung DO) Abdominal pain (02/18/13) Barretts esophagus Bone bruise (09/11/15) Chest pain (11/06/17) precordial Erectile dysfunction of organic origin (07/29/16) Gastroesophageal reflux disease with esophagitis Generalized epilepsy Hiatal hernia Hyperlipidemia Seizure disorder (02/26/13) same meds check levels Small bowel obstruction (02/26/13) 02/18 Tendonitis, Achilles, left (11/24/17) Surgical History EGD - MAC (04/02/13) [facility] [place] EGD - MAC (07/24/16) [facility] [place] History of esophagogastroduodenoscopy (EGD) (~07/06/18) Family History Mother No problems noted. Father No problems noted. Sister No problems noted. Sister No problems noted. Grandfather Personal history of malignant neoplasm COLON Grandfather No problems noted. Grandmother Diabetes Grandmother No problems noted. Daughter No problems noted. FAMILY HISTORY Diabetes Heart disease Social History Smoking/Tobacco Use Status: Former Tobacco Use Alcohol Intake: current Alcohol Intake frequency: a few times a month Drug use: Never Substance use type: does not use current occupation: [employer] What type of physical activity do you participate in: none Do you feel safe in your relationship?: Yes Exam Narrative Exam Narrative: 1.Const: Well-nourished, Well-developed, appearing stated age 2.Eyes: PERRL, no conjunctival injection, and symmetrical lids. No significant nystagmus 3.ENT: Atraumatic external nose and ears. Moist MM. Neck: Symmetric, trachea midline, No thyromegaly. Multiple bites on the tongue. 4.CVS: +S1/S2, No murmurs or gallops. Peripheral pulses 2+ and equal in all extremities. Brisk capillary refill in all extremities. 5.RESP: Unlabored respiratory effort. Clear to auscultation bilaterally. No wheezes rales or rhonchi 6.GI: Soft, Nontender/Nondistended, No hepatosplenomegaly. No guarding or rebound. 7.MSK: Normocephalic/Atraumatic, Extremities w/o deformity or ttp No cyanosis or clubbing. 8.Skin: Warm, Dry. The patient's left neck does have a very small scab with some mild redness around it. No bull's-eye lesion. No other lesions throughout the rest of the body 9.Neuro: crop scout II-XII grossly intact. Sensation grossly intact, no saddle anesthesia, good sensation in the medial thighs bilaterally. No dysdiadochokinesia or dysmetria. Unable to stand well, notably imbalance, wide gait and mild ataxia. Difficulty performing [id number] test. Good dorsiflexion of the great toe bilaterally, however patient has a clear upward Babinski on the right and a clear downward Babinski on the left. +1 patellar reflexes bilaterally, dorsalis pedis and posterior tibial pulses are intact and +2 bilaterally. Midline spinal tenderness at L3, L4-L5 and S1. Patient also demonstrates a positive Kernig's and Brudzinski's sign. Patient demonstrates 4- 5 out of 5 strength of the left lower extremity and 2-3 out of 5 for the right lower extremity. 10.Psych: (AAO) x3. However the patient is notably slow and bringing up the answers, and is definitely not at his normal baseline. Course Vital Signs Vital signs: Vital Signs Pulse 78 07/02/20 20:44 Respiratory Rate 16 07/02/20 20:44 Blood Pressure 131/80 07/02/20 20:44 Pulse Oximetry 93 07/02/20 20:44 Pulse 78 07/02/20 20:44 Respiratory Rate 16 07/02/20 20:44 Blood Pressure 131/80 07/02/20 20:44 Pulse Oximetry 93 07/02/20 20:44 Oxygen Delivery Method Room Air 07/02/20 20:44 Oxygen Flow Rate 0 07/02/20 20:44 Lab/Test Results Lab/Test Results: 07/02/20 20:51 Blood Blood Culture - Pending 07/02/20 20:51 Blood Blood Culture - Pending
[2020-07-02 21:00] VITALS: BP 128/91; PULSE 78; RESP 19; O2SAT 96
[2020-07-02 21:04] LABS: Abs Immature Grans 0.05 10^3/uL (0.0-0.06); Absolute Basophil Count 0.06 10^3/uL (0.0-0.2); Absolute Eosinophil Count 0.18 10^3/uL (0.0-0.7); Absolute Lymphocyte Count 2.28 10^3/uL (1.2-3.4); Absolute Monocyte Count 0.87 10^3/uL (0.1-0.8); Basophils % 0.5; Eosinophils % 1.5; HCT 43.8 % (40.0-50.0); HGB 14.7 g/dL (13.5-17.5); Immature Grans % 0.4; Lymphocytes % 19.1; MCH 29.4 pg (27.0-33.0); MCHC 33.6 % (32.0-36.0); MCV 87.6 fL (80-95); Monocytes % 7.3; Neutrophils % 71.2; Nucleated RBC 0 %; Platelet Count 274 10^3/uL (130-400); RDW 12.2 % (11.8-14.1); RDW-SD 39.2 fL; WBC 11.94 10^3/uL (4.4-10.8)
--- NOTE | 2020-07-02 21:13 | NUR.NOTE ---
Nursing Note:lactate telayed to dr4 abbey of 3.7
[2020-07-02 21:14] LABS: Lactate 3.7 mmol/L (0.6-1.4)
[2020-07-02 21:31] LABS: C-Reactive Protein 0.29 mg/dL (0.0-0.3)
[2020-07-02 21:34] LABS: ALT 33 U/L (16-63); AST 25 U/L (15-37); Albumin 3.8 g/dL (3.4-5.0); Alkaline Phosphatase 80 U/L (46-116); BUN 18 mg/dL (7-18); Bilirubin, Total 0.4 mg/dL (0.2-1.0); CREATININE 1.09 mg/dL (0.70-1.30); Chloride 103 mmol/L (98-107); Glucose 145 mg/dL (74-106); Potassium 3.7 mmol/L (3.5-5.1); Sodium 136 mmol/L (136-145); Total Protein 7.8 g/dL (6.4-8.2)
--- NOTE | 2020-07-02 21:46 | DI.CT_ITS ---
EXAM: CT HEAD WO CLINICAL HISTORY: headache, altered, seizure, positive right babinsk. TECHNIQUE: Imaging Protocol: Axial computed tomography images with coronal and sagittal reformatted images were created and reviewed COMPARISON: CT CT BRAIN NECK CTA from 06/29/2020 FINDINGS: The ventricular system is normal in appearance. No evidence of acute intracranial hemorrhage, mass effect, or midline shift. The orbital structures are unremarkable. The temporal bone structures appear intact. Calvarium: Normal. Visualized Paranasal sinuses/Mastoids: Clear. IMPRESSION: Normal cranial CT. RADIATION DOSE DELIVERED: 734.78mGy.cm Total DLP 734.78mGy.cm Total DLP DATA REPOSITORY: All CT scans at this facility are submitted to the National Radiology Data Registry (NRDR) Dose Index Registry (DIR) with the [employer] (ACR). RADIATION OPTIMIZATION: All CT scans at this facility use at least one of these dose optimization te chniques: automated exposure control; mA and/or kV adjustment per patient size (includes targeted exa ms where dose is matched to clinical indication); or iterative reconstruction.
[2020-07-02 21:51] LABS: Procalcitonin < 0.1 ng/mL
--- NOTE | 2020-07-02 21:54 | DI.VRAD_ITS ---
PROCEDURE INFORMATION: Exam: CT Head Without Contrast Exam date and time: 07/02/2020 9:23 PM Age: 55 years old Clinical indication: Altered mental status/memory loss TECHNIQUE: Imaging protocol: Computed tomography of the head without contrast. COMPARISON: CT HEAD WO 06/29/2020 1:29 PM FINDINGS: Brain: Normal. No hemorrhage. Unremarkable white matter. No mass effect. Cerebral ventricles: No ventriculomegaly. Bones/joints: Unremarkable. No acute fracture. Paranasal sinuses: Visualized sinuses are unremarkable. No fluid levels. Mastoid air cells: Visualized mastoid air cells are well aerated. Soft tissues: Unremarkable. IMPRESSION: No acute intracranial abnormality. Dictated and Authenticated by: Prosper Mcclain MD. Ordering:TRES Prabhakar MD
[2020-07-02 22:06] LABS: ESR 15 mm/hr (1-20)
--- NOTE | 2020-07-02 22:09 | DI.VRAD_ITS ---
PROCEDURE INFORMATION: Exam: CT Thoracic Spine With Contrast Exam date and time: 07/02/2020 9:34 PM Age: 55 years old Clinical indication: Other: Ams/ seizure/headache TECHNIQUE: Imaging protocol: Computed tomography images of the thoracic spine with intravenous contrast. COMPARISON: No relevant prior studies available. FINDINGS: Vertebrae: There is mild superior anterior endplate compression of T8 consistent with a compression fracture. This is age indeterminate, but likely chronic. There is approximately 20% loss of height anteriorly. There is mild anterior wedging of T12 which appears chronic. There is degenerative disc disease at multiple levels. Discs/Spinal canal/Neural foramina: No acute spinal canal stenosis. No foraminal stenosis noted. Soft tissues: Paraspinous soft tissues are unremarkable. No castro paraspinous hematoma. IMPRESSION: 1. Mild compression fracture of T8. Approximately 20% loss of height anteriorly. This is age indeterminate. There are some features that suggest this is chronic. 2. Multilevel degenerative thoracic spine changes. 3. No dislocation or malalignment. Dictated and Authenticated by: Prosper Mcclain MD. Ordering:TRES Prabhakar MD
[2020-07-02] MEDS: CEFEPIME 2 GM in Normal Saline 100 ML IVPB (22:45)
[2020-07-02] MEDS: Normal Saline 1,000 ML 1000 ML IV (22:46)
[2020-07-02] MEDS: metroNIDAZOLE 500 MG/100 ML BAG 100 MG IVPB (22:46)
[2020-07-02] MEDS: levETIRAcetam 2,000 MG in Normal Saline 100 ML 400 MG IVPB (22:46)
[2020-07-02 22:50] LABS: Bilirubin Negative (Negative); Blood Negative (Negative); Clarity Clear (Clear); Glucose Negative (Negative); Ketones Negative (Negative); Leukocyte Esterase Negative (Negative); Nitrite Negative (Negative); Urobilinogen 0.2 EU/dL (Up TO 0.2)
--- NOTE | 2020-07-02 22:52 | DI.VRAD_ITS ---
PROCEDURE INFORMATION: Exam: CT Cervical Spine With Contrast Exam date and time: 07/02/2020 9:34 PM Age: 55 years old Clinical indication: Other: AMS, seizure, headache TECHNIQUE: Imaging protocol: Computed tomography images of the cervical spine with intravenous contrast. COMPARISON: CT BRAIN NECK CTA 06/29/2020 4:40 PM FINDINGS: Bones/joints: No acute fracture. No suspicious bone lesions. Discs/Spinal canal/Neural foramina: Severe degenerative disc disease at C5-C6 and C6-C7. Associated facet and uncovertebral joint degeneration. Bilateral moderate to severe foraminal stenosis at C5-C6 from osteophytic encroachment. No acute spinal stenosis changes. Moderate spinal stenosis from posterior osteophytes noted at C5-C6. Soft tissues: Unremarkable. Lungs: Lung apices are normal. IMPRESSION: 1. Multilevel degenerative cervical spine changes. 2. Bilateral moderate to severe foraminal stenosis at C5-C6 from osteophytic encroachment. 3. Moderate spinal canal stenosis at C5-C6 from posterior disc space marginal osteophytes. 4. No fracture. 5. No focal suspicious bone lesions. 6. Soft tissues of the cervical region are unremarkable. Dictated and Authenticated by: Prosper Mcclain MD. Ordering:TRES Prabhakar MD
[2020-07-02 22:53] LABS: Bacteria Negative HPF (Negative); C & S Indicated? No; Casts Negative LPF (Negative); Crystals Negative HPF (Negative); Epithelial Cells Negative HPF (Negative); Mucus Negative (Negative); RBC Negative HPF (0-2); WBC Negative HPF (0-5)
[2020-07-02] MEDS: AMPICILLIN SODIUM 2 GM in Normal Saline 100 ML IVPB (23:10)
[2020-07-02] MEDS: VANCOMYCIN 2,000 MG in Normal Saline 500 ML 333.3333 MG IVPB (23:17)
[2020-07-02 23:18] VITALS: BP 140/97; PULSE 82; RESP 18; TEMP 37.5; O2SAT 97
--- NOTE | 2020-07-02 23:29 | DI.VRAD_ITS ---
PROCEDURE INFORMATION: Exam: CT Lumbar Spine With Contrast Exam date and time: 07/02/2020 21:34 Age: 55 years old Clinical indication: Patient HX: Headache, altered, seizure positive right babinski TECHNIQUE: Imaging protocol: Computed tomography images of the lumbar spine with intravenous contrast. Contrast material: OMNIPAQUE 350; Contrast volume: 100 ml; Contrast route: INTRAVENOUS (IV); COMPARISON: No relevant prior studies available. FINDINGS: Vertebrae: Minor chronic appearing anterior wedging at T12. No acute fracture or subluxation in the lumbar spine. Discs/Spinal canal/Neural foramina: Minor broad-based disc bulges in the lumbar spine. No castro central canal stenosis is appreciated on CT. [id number] bilateral neural foraminal stenosis at L5-S1. Soft tissues: Unremarkable. IMPRESSION: No acute bony pathology. Minor spondylosis. Dictated and Authenticated by: Deonna Diehl MD. Ordering:TRES Prabhakar MD
[2020-07-02 23:30] VITALS: BP 128/80; PULSE 77; RESP 17; O2SAT 96
[2020-07-03 00:05] VITALS: BP 134/92; PULSE 75; RESP 16; O2SAT 96
[2020-07-03 00:30] VITALS: BP 130/92; PULSE 71; RESP 16; O2SAT 97
[2020-07-03 00:39] VITALS: TEMP 36.7
[2020-07-03 00:41] LABS: VALPROIC ACID 5.1 ug/mL (50-100)
[2020-07-03] MEDS: Omnipaque 350 MG/ML 100 ML BTL IJ (00:49)
[2020-07-03] MEDS: Normal Saline - Diluent 50 ML VIAL IV (00:51)
[2020-07-03 01:59] VITALS: BP 118/59; PULSE 74; RESP 12; O2SAT 96
[2020-07-03] MEDS: Ondansetron 4 MG/2 ML VIAL IVP (02:19)
[2020-07-03 14:03] LABS: COVID-19 RT-PCR UVMMC Result Negative (Negative)
[2020-07-04 10:27] LABS: Lyme Ab w Rflx to Lyme Confirm Negative (Negative)
[2020-07-05 18:57] LABS: Anaplasma phagocytophilum Negative (Negative); B. miyamotoi PCR Negative (Negative); Babesia divergens/MO-1 Negative (Negative); Babesia duncani Negative (Negative); Babesia microti Negative (Negative); Ehrlichia chaffeensis Negative (Negative); Ehrlichia ewingii/canis Negative (Negative); Ehrlichia muris eauclairensis Negative (Negative)
== END 2020-07-03 02:15 | disposition short-term general hospital (02) ==
PROVIDERS: Emergency Provider Student in an Organized Health Care Education/Training Program; PCP Family Medicine
DX: R29.818 Other symptoms and signs involving the nervous system (principal); G40.89 Other seizures; R50.9 Fever, unspecified; R79.9 Abnormal finding of blood chemistry, unspecified; Z87.39 Personal history of other diseases of the musculoskeletal system and connective tissue; Z11.59 Encounter for screening for other viral diseases
CPT/HCPCS: 80053; 84145; 85652; 87040; 87449; 87798; 96361; 96365; 96366; 96367; 96368; 96375; 99285; U0003; 70450; 72126; 72129; 72132; 80164; 81003; 81015; 83605; 85025; 86140; 86618; J0290; J1953; J2405; J3490

== ENCOUNTER 2020-07-08 11:21 | Emergency (ER) | payer OTHER, SELFPAY ==
[2020-07-08] VITALS (21 sets, daily range): BP systolic 128–170; BP diastolic 84–115; PULSE 74–93; RESP 12–26; TEMP 36.4–36.6; O2SAT 96–100
--- NOTE | 2020-07-08 11:15 | RT.EKG_ITS ---
APPROVED REPORT Exam: Resting ECG Patient Location: E HR:84 bpm ECG Measurements Heart Rate 84 AXIS AK 150 P 47 QRSd 105 QRS 66 QT 363 T 11 QTc 429 Conclusion Sinus rhythm...normal P axis, V-rate 60- 99
--- NOTE | 2020-07-08 11:55 | W.ED.GENAD ---
Discharge Plan Disposition Patient Disposition: HOME Condition: Fair Discharge Details Clinical Impression: Back pain, Numbness and tingling of foot Primary Care Provider: Parish Russell ED Provider: Negin Fisher Home Meds and New Rx's Prescriptions: Continued albuterol sulfate [Ventolin HFA] 90 mcg/actuation HFA aerosol inhaler 1 - 2 puff IH Q4H PRN (Reason: shortness of breath or wheezing) Qty: 8.5 RF: 0 fluticasone propionate 50 mcg/actuation spray,suspension 2 spray LINDSAY DAILY RF: 0 divalproex [Depakote ER] 500 mg tablet extended release 24 hr 1,000 mg PO DAILY Qty: 180 RF: 3 pantoprazole 40 mg tablet,delayed release (DR/EC) 40 mg PO HS 90 Days Qty: 180 RF: 3 carbamazepine 200 mg tablet extended release 12 hr 200 mg PO DAILY Qty: 90 RF: 3 methocarbamol 500 mg tablet 500 mg PO Q6H PRN (Reason: muscle spasm) Qty: 14 RF: 0 Discharge Instructions Instructions: Back Pain (ED) Additional Instructions: Your labs are reassuring here today. However, I would like for you to have an outpatient MRI this week. This plan was discussed with [facility] neurology. Please keep your upcoming appoint with Dr. Russell. If you develop fever/chills, headache, increased pain, weakness or the new/worsening symptom please seek care urgently once again. Referrals: Parish Russell [Primary Care Provider] - Discharge Data Discharge Date/Time-TO BE ENTERED AT DEPARTURE: 07/08/20 14:13 Medical Decision Making Patient is a pleasant 55-year-old gentleman presenting today with chief complaint of intermittent numbness in his bilateral lower extremities more so on the left than the right. Patient was seen here recently at which time he was transferred to [facility] with concern for meningitis. He was diagnosed at that time with aseptic meningitis. She states that he is been having this unusual sensation in his lower extremities since the time of discharge on 07/05/2020. He denies any change in his bowel or bladder habits. No sensory changes in the saddle region. States his been having some mild discomfort in his lower back since then. However, he feels that this is associate with his chronic pain and/or associate with the LP. This is not been worsening. He has not had any fevers or chills. No headaches. No nausea or vomiting. Denies any visual changes. On exam, I do not note any deficits. He has no meningismus. No rash. Lungs are clear, normal cardiac exam, abdomen benign. Not appreciate any unusual exam finding on his spine. Exam of the lower extremities shows no lack of sensation. He has normal proprioception, normal sharp/dull testing, no saddle paresthesias. He is able to ambulate unassisted, no weakness noted in lower extremities. He has normal reflexes at the knee, ankle as well as normal Babinski. The patient's recent admission and illness, and he remains highly concerned potential infectious etiology. Plan for labs. I do not see a need for emergent imaging at this time. Plan for laboratory evaluation and subsequent consultation with [facility] neurology who is the admitting team. I did review the notes from his recent admission. Labs reviewed. No leukocytosis. Stable H&H. Lactate is normal. No abnormalities on his CBC. CRP is slightly elevated 0.6. Urine within the normal limits. The post void residual. Consuted with Dr. Pacheco with neurology at [facility]. He advised outpatient MRI of spine this week. Advised he could have a small hemorrhage that is irritating the nerve root but that would not change course at this time. Discussed these findings with the patient. I did discuss inpatient admission for continued observation of these unusual symptoms with the patient. She does not want admission at this point and would prefer discharge home. He is able to return with new or worsening symptoms. I have asked care management to help arrange outpatient MRI for primary care. Strict return precautions were given. All of his questions and concerns were addressed and he is in agreement with this plan. [facility] General Mode of arrival: ambulatory. Date/Time Provider Initiated Documentation: 07/08/20 11:32. Limitations to Documentation: no limitations. Information obtained by: patient, RN notes reviewed and old records reviewed. History of Present Illness 55 year old M presents to the emergency department with the chief complaint of numbness/tingling in BLE, described as moderate, Quality is described as other, Patient reports no radiation. Patient started experiencing this day(s) (since time of discharge on 07/05/20) and it has been intermittent. Immobilization improves symptom(s), Movement worsens symptoms (worse when standing/ambulating) . Patient notes no other symptoms.; denies fever/chills, headaches, malaise, nausea/vomiting, rash and shortness of breath. Patient did receive the following treatments prior to arrival, none Related Data Home Medications Medication Instructions Recorded Confirmed albuterol sulfate 90 mcg/actuation 1 - 2 puff IH Q4H PRN #8.5 gm 08/11/19 07/08/20 aerosol inhaler fluticasone propionate 50 2 spray LINDSAY DAILY gm 08/18/19 07/08/20 mcg/actuation nasal spray,suspension divalproex 500 mg tablet,extended 1,000 mg PO DAILY #180 tab-cap 02/01/20 07/08/20 release 24 hr pantoprazole 40 mg tablet,delayed 40 mg PO HS 90 Days #180 tab-cap 03/15/20 07/08/20 release carbamazepine 200 mg 200 mg PO DAILY #90 tab-cap 03/17/20 07/08/20 tablet,extended release,12 hr methocarbamol 500 mg PO Q6H PRN #14 tab 06/29/20 07/08/20 Previous Rx's Medication Instructions Recorded albuterol sulfate 90 mcg/actuation 1 - 2 puff IH Q4H PRN #8.5 gm 08/11/19 aerosol inhaler divalproex 500 mg tablet,extended 1,000 mg PO DAILY #180 tab-cap 02/01/20 release 24 hr pantoprazole 40 mg tablet,delayed 40 mg PO HS 90 Days #180 tab-cap 03/15/20 release carbamazepine 200 mg 200 mg PO DAILY #90 tab-cap 03/17/20 tablet,extended release,12 hr methocarbamol 500 mg PO Q6H PRN #14 tab 06/29/20 Allergies Allergy/AdvReac Type Severity Reaction Status Date / Time No Known Allergies Allergy Unverified 07/08/20 14:16 General Stated Complaint: GenMedical XAVIER: 2 Review of Systems Constitutional Constitutional: Reports as per HPI, Denies chills, Reports fatigue, Denies fever(s), Denies frequent falls, Denies headache(s), Denies snoring and Denies weakness Eyes Eyes: Reports as per HPI, Denies blurry vision, Denies change in vision and Denies photophobia ENT Ears, Nose, Mouth, and Throat: Denies vertigo, Denies headache(s) and Denies neck pain Cardiovascular Cardiovascular: Reports as per HPI, Denies chest pain, Denies lightheadedness, Denies radiating jaw, neck or arm pain, Denies dyspnea and Denies dyspnea on exertion Respiratory Respiratory: Reports as per HPI, Denies chest congestion, Denies cough, Denies dyspnea, Denies dyspnea on exertion, Denies snoring, Denies stridor and Denies wheezing Gastrointestinal Gastrointestinal: Reports as per HPI, Denies abdominal pain, Denies change in bowel habits, Denies nausea and Denies vomiting Genitourinary Genitourinary: Reports system reviewed and no additional complaints, except as documented (denies change in urinary habits) Musculoskeletal Musculoskeletal: Reports as per HPI, Reports back pain (at area of LP, reports chronic back pain), Denies myalgias, Denies muscle cramps, Denies neck pain and Reports numbness Integumentary/Breasts Skin/Breast: Reports as per HPI and Denies rash Neurologic Neurologic: Reports as per HPI, Denies abnormal movements, Denies abnormal speech, Denies behavioral changes, Denies confusion, Denies vertigo, Denies frequent falls, Denies headache(s), Denies localized weakness, Reports numbness, Denies sensory deficit and Denies weakness Psychiatric Psychiatric: Denies behavioral changes and Denies confusion Endocrine Endocrine: Reports fatigue Allergic/Immunologic Allergic/Immunologic: Denies wheezing [facility] Medical History (Updated 07/08/20 @ 14:03 by KAITLYNN العراقي) Abdominal pain (02/18/13) Barretts esophagus Bone bruise (09/11/15) Chest pain (11/06/17) precordial Erectile dysfunction of organic origin (07/29/16) Gastroesophageal reflux disease with esophagitis Generalized epilepsy Hiatal hernia Hyperlipidemia Seizure disorder (02/26/13) same meds check levels Small bowel obstruction (02/26/13) 02/18 Tendonitis, Achilles, left (11/24/17) Surgical History EGD - MAC (04/02/13) [facility] EGD - MAC (07/24/16) [facility] History of esophagogastroduodenoscopy (EGD) (~07/06/18) Family History (Reviewed 07/02/20 @ 21:32 by LATESHA Garcia Mother No problems noted. Father No problems noted. Sister No problems noted. Sister No problems noted. Grandfather Personal history of malignant neoplasm COLON Grandfather No problems noted. Grandmother Diabetes Grandmother No problems noted. Daughter No problems noted. FAMILY HISTORY Diabetes Heart disease Social History Smoking/Tobacco Use Status: Former Tobacco Use Smoking risk assessment performed?: Yes Alcohol Intake: current Alcohol Intake frequency: a few times a month Drug use: Never Substance use type: does not use current occupation: [employer] What type of physical activity do you participate in: none Do you feel safe in your relationship?: Yes Exam Const General: cooperative, healthy appearing, uncomfortable, no acute distress, well developed and well groomed Nutritional Appearance: average body habitus and well nourished Orientation: alert, awake and oriented x3 HENMT Head: normal to inspection, no palpable skull fracture, normocephalic and atraumatic Ears: hearing grossly normal bilaterally, external ears normal and TM's normal bilaterally General nose exam: external nose normal Mouth: oral mucosae normal and moist mucous membranes Throat: posterior oropharynx normal Eyes General: appearance normal, both eyes and all related structures Alignment and Position: alignment normal Periorbital: periorbital findings normal Eyelids: eyelids normal Sclera: sclerae normal Cornea: corneas normal Pupils: PERRL EOM: EOM intact bilaterally Neck Neck: normal visual inspection, full ROM, no lymphadenopathy and no meningeal signs Resp Effort & Inspection: normal respiratory effort, able to speak in complete sentences and no respiratory distress Auscultation: clear to auscultation bilaterally, no rales, no rhonchi and no wheezes Cardio Rate: regular rate Rhythm: regular rhythm Heart Sounds: S1 normal and S2 normal GI Inspection: normal to inspection and non-distended Palpation: soft, no hepatosplenomegaly, not firm, no guarding, not rigid and nontender Percussion: normal to percussion Auscultation: normal bowel sounds Back/Spine/Pelvis Cervical Spine: normal cervical lordosis and cervical ROM normal Thoracic/Lumbar Spine: thoracic and lumbar spine normal to inspection, No thoracic spinal tenderness, No lumbar spinal tenderness and No straight leg raise positive Skin General skin exam: no rashes or lesions noted Neuro General: patient alert, patient awake and patient oriented x3 Cranial Nerves: CN's II-XI intact bilaterally Cognition: normal cognition Speech: speech normal Gait: normal gait Motor: muscle tone normal throughout, strength 5/5 throughout, no pronator drift, no movement abnormalities noted and no fasciculations Sensory Exam: no sensory deficits noted, normal double simultaneous stimulation and other (proprioception intact BLE, strength intact, sharp/dull intact) Coordination: [id number] test normal, [id number] test normal and other (no myoclonus) Extrem General: normal to inspection, capillary refill normal, no pedal edema and no calf tenderness Psych Appearance: grossly normal and well kempt Mental Status: mental status grossly normal Speech and Movement: speech and movement normal Course Vital Signs Vital signs: Vital Signs Temperature 36.6 C 07/08/20 11:37 Pulse 82 07/08/20 11:37 Respiratory Rate 16 07/08/20 11:37 Blood Pressure 129/88 07/08/20 11:37 Pulse Oximetry 96 07/08/20 11:37 Temperature 36.6 C 07/08/20 11:37 Temperature Source Temporal Artery Scan 07/08/20 11:37 Pulse 82 07/08/20 11:37 Respiratory Rate 16 07/08/20 11:37 Respiratory Effort Non-Labored 07/08/20 11:40 Blood Pressure 129/88 07/08/20 11:37 Blood Pressure Position Supine 07/08/20 11:37 Pulse Oximetry 96 07/08/20 11:37 Oxygen Delivery Method Room Air 07/08/20 11:37 Oxygen Flow Rate 0 07/08/20 11:37 Pain Level 2 07/08/20 11:37
[2020-07-08 12:56] LABS: Lactate 1.2 mmol/L (0.6-1.4)
[2020-07-08 12:58] LABS: Abs Immature Grans 0.04 10^3/uL (0.0-0.06); Absolute Basophil Count 0.06 10^3/uL (0.0-0.2); Absolute Eosinophil Count 0.26 10^3/uL (0.0-0.7); Absolute Lymphocyte Count 1.98 10^3/uL (1.2-3.4); Absolute Monocyte Count 0.84 10^3/uL (0.1-0.8); Absolute Neutrophil Count 6.36 10^3/uL (1.2-6.7); Basophils % 0.6; Eosinophils % 2.7; Immature Grans % 0.4; Lymphocytes % 20.8; MCH 29.7 pg (27.0-33.0); MCHC 33.3 % (32.0-36.0); MCV 89.2 fL (80-95); Monocytes % 8.8; Neutrophils % 66.7; Nucleated RBC 0 %; Platelet Count 288 10^3/uL (130-400); RBC 4.71 10^6/uL (4.36-5.78); RDW 12.5 % (11.8-14.1); RDW-SD 40.5 fL; WBC 9.54 10^3/uL (4.4-10.8)
[2020-07-08] MEDS: Normal Saline 1,000 ML 1000 ML IV (13:00)
[2020-07-08] MEDS: Normal Saline Flush 10 ML SYR IVP (13:04)
[2020-07-08 13:06] LABS: Bilirubin Negative (Negative); Blood Negative (Negative); Clarity Clear (Clear); Glucose Negative (Negative); Ketones Negative (Negative); Leukocyte Esterase Negative (Negative); Nitrite Negative (Negative); Urobilinogen 0.2 EU/dL (Up TO 0.2); pH 6.5 (5-8)
[2020-07-08 13:10] LABS: C-Reactive Protein 0.36 mg/dL (0.0-0.3)
[2020-07-08 13:17] LABS: ALT 53 U/L (16-63); AST 22 U/L (15-37); Albumin 3.8 g/dL (3.4-5.0); Alkaline Phosphatase 78 U/L (46-116); Anion Gap 7.8 mmol/L (3-11); BUN 13 mg/dL (7-18); Bilirubin, Total 0.3 mg/dL (0.2-1.0); CO2 27.2 mmol/L (21.0-32.0); CREATININE 0.86 mg/dL (0.70-1.30); Chloride 102 mmol/L (98-107); Glucose 77 mg/dL (74-106); Magnesium 1.9 mg/dL (1.8-2.4); Sodium 137 mmol/L (136-145); Total Protein 7.6 g/dL (6.4-8.2)
[2020-07-08 13:19] LABS: Troponin I < 0.05 ng/mL (<0.06)
[2020-07-08 13:40] LABS: ESR 18 mm/hr (1-20)
--- NOTE | 2020-07-08 14:05 | NUR.NOTE ---
Nursing Note: Referral given to Care Management that patient needs an MRI by end of week. To contact PCP to facilitate this. Sujey andrews
== END 2020-07-08 14:13 | disposition home or self-care (01) ==
PROVIDERS: Emergency Provider Physician Assistant; PCP Family Medicine
DX: M54.5 Low back pain (principal); R20.2 Paresthesia of skin; R20.0 Anesthesia of skin; Z86.61 Personal history of infections of the central nervous system
CPT/HCPCS: 80053; 85652; 87040; 93005; 96360; 99284; 81003; 83605; 83735; 84484; 85025; 86140; 93010; 99283

== ENCOUNTER 2020-11-24 09:36 | Outpatient (CLI) | payer BC, SELFPAY ==
--- NOTE | 2020-11-24 09:45 | DI.RAD_ITS ---
EXAM: XR KNEE RT 3V AP,LAT,MARK CLINICAL HISTORY: right knee pain. TECHNIQUE: 2D digital imaging was performed. COMPARISON: CR LEFT KNEE 3 VIEW COMPLETE from 09/11/2015 FINDINGS: BONES: No acute fracture is present. No bony destructive lesion is seen. JOINTS: The knee is normally aligned. No joint effusion is seen. SOFT TISSUE: Normal. IMPRESSION: Unremarkable radiographs of the right knee. DATA REPOSITORY: RADIATION DOSE DELIVERED:
== END 2020-11-24 09:37 | disposition home or self-care (01) ==
LOC: DIORS 09:37
PROVIDERS: PCP Family Medicine; Visit Provider Student in an Organized Health Care Education/Training Program
DX: M25.561 Pain in right knee (principal)
CPT/HCPCS: 73562

== ENCOUNTER 2021-05-01 20:47 | Emergency (ER) | payer BC, SELFPAY ==
[2021-05-01 20:50] VITALS: BP 153/105; PULSE 88; RESP 18; TEMP 36.7; O2SAT 95
--- NOTE | 2021-05-01 21:00 | DI.CT_ITS ---
Exam(s) CT ABDOMEN PELVIS W EXAM: CT ABDOMEN PELVIS W CLINICAL HISTORY: oral and IV. TECHNIQUE: Imaging Protocol: Axial computed tomography images with coronal and sagittal reformatted images were created and reviewed CONTRAST MATERIAL: Intravenous: Omnipaque 100cc Oral: None COMPARISON: CT CT BRAIN NECK CTA from 06/29/2020 FINDINGS: VISUALIZED LUNG BASES: No nodules nor pleural effusions evident. ABDOMEN: There is no ascites. LIVER: Small enhancing probable hemangioma noted in the right hepatic lobe, this measuring 9 x 9 mill imeters. Above this level in the right hepatic lobe is a small benign cyst measuring 5 millimeters. There is also a cyst or hemangioma evident in the left hepatic lobe which measures 9 x 6 millimeters . GALLBLADDER/BILIARY: No obvious gallbladder pathology. CBD is not dilated. PANCREAS: No evidence of pancreatic mass nor dilatation of the pancreatic duct. SPLEEN: Spleen is not enlarged. No obvious intrasplenic lesions. Splenic and portal veins are paten t. ADRENALS: There are no significant adrenal masses. KIDNEYS:No cysts evident. No solid renal masses. No calculi nor hydronephrosis.. ABDOMINAL AORTA: Abdominal aorta is not enlarged. LYMPH NODES:There is no retroperitineal nor paraaortic adenopathy. ABDOMINAL WALL: No evidence of significant anterior abdominal wall hernia. However, there is a fat c ontaining left inguinal hernia. GI: There is no evidence of bowel obstruction, free air, nor abscess. PELVIS: GI: No evidence of appendicitis.No evidence of sigmoid diverticulitis.Colon is difficult to evaluate as is no oral contrast within the lumen of the colon. Cannot exclude a subtle colitis here. LYMPH NODES: No obturator adenopathy. However, there are few slightly prominent lymph nodes in both sides of the pelvis around the external iliac vessels. These range in size up to 1.2 cm. There is n o adenopathy in the inguinal regions. REPRODUCTIVE: Prostate gland is not enlarged. URINARY BLADDER: No calculi nor obvious masses evident OSSEOUS: No significant osseous lesions. IMPRESSION: 1. There are slightly prominent intrapelvic lymph nodes along the external iliac vessels, these lymph nodes ranging up to 1.2 cm size. There are also multiple small mesenteric lymph nodes noted, these ranging up to 1 point 3 cm size.. There is no para-aortic adenopathy. There is also no adenopathy i n the inguinal regions. Spleen size is upper normal. 2. Small left inguinal hernia which contains fat but no bowel loops. 3. The appearance of the colon is difficult to assess because of lack of oral contrast having reached the colon by the time of image acquisition. Cannot exclude subtle colitis pattern. Recommend colon oscopy follow-up. 4. Multiple benign-appearing findings in the liver, as described above. RADIATION DOSE DELIVERED: 1,163.39mGy.cm Total DLP DATA REPOSITORY: All CT scans at this facility are submitted to the National Radiology Data Registry (NRDR) Dose Index Registry (DIR) with the [employer] (A[employer]). RADIATION OPTIMIZATION: All CT scans at this facility use at least one of these dose optimization te chniques: automated exposure control; mA and/or kV adjustment per patient size (includes targeted exa ms where dose is matched to clinical indication); or iterative reconstruction.
[2021-05-01] MEDS: Prochlorperazine 10 MG/2 ML VIAL IVP (21:10)
[2021-05-01] MEDS: Normal Saline 1,000 ML 1000 ML IV (21:10)
[2021-05-01] MEDS: Ketorolac 15 MG/ML VIAL IVP (21:10)
--- NOTE | 2021-05-01 21:14 | W.ED.GENAD ---
Discharge Plan Disposition Patient Disposition: HOME Condition: Stable Discharge Details Clinical Impression: Acute viral syndrome Primary Care Provider: Parish Russell ED Provider: Sariah Clarke Home Meds and New Rx's Prescriptions: Continued divalproex [Depakote ER] 500 mg tablet extended release 24 hr 1,000 mg PO DAILY Qty: 180 RF: 3 carbamazepine 200 mg tablet extended release 12 hr 200 mg PO DAILY Qty: 90 RF: 3 pantoprazole 40 mg tablet,delayed release (DR/EC) 40 mg PO HS Qty: 90 RF: 3 Discharge Instructions Instructions: Viral Syndrome (ED) Additional Instructions: push fluids to stay well hydrated. take medication as prescribed can use acetaminophen and or ibuprofen as needed for pain If you notice any worsening of your symptoms, or any new symptoms such as vomiting, diarrhea, fever, chills, shortness of breath, chest pain, numbness, weakness, or fainting , please return immediately to the emergency department for reevaluation. Please follow up with your primary care provider as soon as possible for reassessment and reevaluation. As always, it was a pleasure participating in your medical care today. Referrals: Parish Russell. [Primary Care Provider] - Medical Decision Making <aSriah Clarke NP - Last Filed: 05/01/21 22:16> patient presents with c/o diarrhea headache and left sided abdominal pain, no fevers. hemodynamically stable. IV established given compazine 10 mg IVP, toradol 15 mg IVP, routine labs drawn, will order ct abd/pelvis with oral and IV contrast Medical Records Medical records reviewed: Yes I reviewed the patient's medical records. Lab Data Lab results reviewed: Yes I reviewed the patient's lab results. <Aki Sung DO - Last Filed: 05/02/21 00:41> Patient signed out pending reassessment after CT imaging. CT negative for acute process, small reactive lymph nodes. No other abnormalities. Please refer to do medical physical exam, documentation assessment and plan. Reassessment demonstrates nonacute abdomen, patient feels better, discharged home. Discussed red flags which to return. I have extensively reviewed the treatment plan and discharge instructions with the patient. I have addressed all patient concerns at this time. The patient was made aware of what symptoms to monitor for that would warrant a return to the emergency department. Discussed the plan with the patient, they demonstrate verbal understanding and agreement with our assessment and plan at this time. The documentation in this chart was dictated using [employer] dictation software. Please excuse any dictation errors. FINDINGS: Liver: There are multiple sub cm low-dense liver lesions which are too small to characterize but likely represent cysts or benign biliary hamartomas. Gallbladder and bile ducts: Normal. No calcified stones. No ductal dilation. Pancreas: The pancreas is mildly atrophic, but otherwise appears unremarkable without focal lesion or evidence of acute inflammation. Spleen: Normal. No splenomegaly. Adrenal glands: Normal. No mass. Kidneys and ureters: No renal or ureteral stones are identified. There is no hydronephrosis or hydroureter. Stomach and bowel: There is no evidence of small or large bowel inflammation. There is no evidence for bowel obstruction. Appendix: No evidence of appendicitis. Intraperitoneal space: Unremarkable. No free air. No significant fluid collection. Vasculature: Unremarkable. No abdominal aortic aneurysm. Lymph nodes: There are a few borderline dilated left external iliac lymph nodes measuring up to 1 cm, as seen on image 785, series 7. There are other prominent subcentimeter bilateral inguinal lymph nodes and right external iliac lymph nodes. Urinary bladder: No bladder stones are identified. Reproductive: Unremarkable as visualized. Bones/joints: There is multilevel mild spondylosis of the lower thoracic and lumbar spine. There is mild anterior wedging the T11 and T12 vertebra which appears chronic. There is mild facet arthrosis of the lower lumbar spine. There is mild degenerative change of both hips. Soft tissues: There is a 2.4 x 1.7 cm fat containing umbilical hernia. IMPRESSION: 1. No acute process within the abdomen or pelvis identified. 2. Small fat containing umbilical hernia. 3. Borderline enlarged left external iliac lymph nodes with other prominent subcentimeter pelvic lymph nodes, likely reactive. Thank you for allowing us to participate in the care of your patient. Dictated and Authenticated by: Vishal Lopez MD 05/02/2021 12:26 AM Eastern Time ([place] & [place]) HPI <Sariah Clarke NP - Last Filed: 05/01/21 22:16> General Date/Time Provider Initiated Documentation: 05/01/21 20:47. Limitations to Documentation: no limitations. Information obtained by: patient. HPI Narrative: patient presents for evaluation of left sided abdominal pain, diarrhea and headache. denies fever or bloody stool no similar history, no sick contacts with similar history. tolerating fluids. is fully vaccinated for covid, no known exposures Related Data Home Medications Medication Instructions Recorded Confirmed carbamazepine 200 mg 200 mg PO DAILY #90 tab-cap 01/17/21 05/01/21 tablet,extended release,12 hr divalproex 500 mg tablet,extended 1,000 mg PO DAILY #180 tab-cap 01/17/21 05/01/21 release 24 hr pantoprazole 40 mg tablet,delayed 40 mg PO HS #90 tab-cap 04/24/21 05/01/21 release Previous Rx's Medication Instructions Recorded carbamazepine 200 mg 200 mg PO DAILY #90 tab-cap 01/17/21 tablet,extended release,12 hr divalproex 500 mg tablet,extended 1,000 mg PO DAILY #180 tab-cap 01/17/21 release 24 hr pantoprazole 40 mg tablet,delayed 40 mg PO HS #90 tab-cap 04/24/21 release Allergies Allergy/AdvReac Type Severity Reaction Status Date / Time No Known Allergies Allergy Verified 05/01/21 20:53 General Stated Complaint: Abd Prob XAVIER: 3 Review of Systems <Sariah Clarke NP - Last Filed: 05/01/21 22:16> All systems reviewed & are unremarkable except as noted in HPI and below Constitutional Constitutional: Denies fever(s) Cardiovascular Cardiovascular: Denies chest pain and Denies dyspnea Respiratory Respiratory: Denies cough and Denies dyspnea Gastrointestinal Gastrointestinal: Reports abdominal pain, Denies hematochezia, Reports diarrhea, Reports nausea and Denies vomiting Musculoskeletal Musculoskeletal: Denies back pain PFS <Sariah Clarke NP - Last Filed: 05/01/21 22:16> Medical History (Updated 05/01/21 @ 22:15 by Sariah Clarke NP) Abdominal pain (02/18/13) Barretts esophagus Bone bruise (09/11/15) Chest pain (11/06/17) precordial Erectile dysfunction of organic origin (07/29/16) Gastroesophageal reflux disease with esophagitis Generalized epilepsy Hiatal hernia Hyperlipidemia Seizure disorder (02/26/13) same meds check levels Small bowel obstruction (02/26/13) 02/18 Tendonitis, Achilles, left (11/24/17) Surgical History EGD - MAC (04/02/13) [facility] [place] - MAC (07/24/16) [facility] [place] History of esophagogastroduodenoscopy (EGD) (~07/06/18) Family History Mother No problems noted. Father No problems noted. Sister No problems noted. Sister No problems noted. Grandfather Personal history of malignant neoplasm COLON Grandfather No problems noted. Grandmother Diabetes Grandmother No problems noted. Daughter No problems noted. 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 Pets and animals: No Do you think of yourself as: straight/heterosexual Current gender identity: male What is your relationship status?: How often do you talk on the phone with friends or family?: twice per week How often do you get together with friends or relatives?: twice per week How often do you attend religion or islam services?: 1-3 times per year Do you belong to any clubs or organized social groups?: yes Panel score (0-1 are the most socially isolated patients): 2 What type of physical activity do you participate in: none Lilibeth/Taoism: Evangelical Seatbelt use: sometimes Helmet use: Yes Helmet use: always Drive intox or ride w/intox otr owner operator truck driver: No Do you feel safe at home: Yes Do you feel safe in your relationship?: Yes Exam <Sariah Clarke NP - Last Filed: 05/01/21 22:16> Const General: cooperative, healthy appearing, comfortable and no acute distress Nutritional Appearance: overweight Orientation: alert, awake and oriented x3 HENMT Head: normal to inspection Mouth: oral mucosae normal Neck Neck: normal visual inspection, full ROM and no meningeal signs Resp Effort & Inspection: normal respiratory effort Auscultation: clear to auscultation bilaterally Cardio Rate: regular rate Rhythm: regular rhythm GI Inspection: distended Palpation: soft and tender in the LLQ Auscultation: normal bowel sounds Skin General skin exam: no rashes or lesions noted Neuro General: patient alert, patient awake, patient oriented x3, no meningeal signs and no focal motor deficits Cranial Nerves: CN's II-XI intact bilaterally Cognition: normal cognition Speech: speech normal Extrem General: normal to inspection and full ROM Course <Sariah Clarke NP - Last Filed: 05/01/21 22:16> Vital Signs Vital signs: Vital Signs Temperature 36.7 C 05/01/21 20:50 Pulse 88 05/01/21 20:50 Respiratory Rate 18 05/01/21 20:50 Blood Pressure 153/105 H 05/01/21 20:50 Pulse Oximetry 95 05/01/21 20:50 Temperature 36.7 C 05/01/21 20:50 Temperature Source Skin 05/01/21 20:50 Pulse 88 05/01/21 20:50 Respiratory Rate 18 05/01/21 20:50 Respiratory Effort Non-Labored 05/01/21 20:54 Blood Pressure 153/105 H 05/01/21 20:50 Pulse Oximetry 95 05/01/21 20:50 End Tidal Co2 4 05/01/21 20:50 Pain Level 3 05/01/21 21:10
[2021-05-01 21:23] LABS: Abs Immature Grans 0.03 10^3/uL (0.0-0.06); Absolute Basophil Count 0.07 10^3/uL (0.0-0.2); Absolute Eosinophil Count 0.33 10^3/uL (0.0-0.7); Absolute Lymphocyte Count 2.23 10^3/uL (1.2-3.4); Absolute Monocyte Count 1.02 10^3/uL (0.1-0.8); Absolute Neutrophil Count 4.57 10^3/uL (1.2-6.7); Basophils % 0.8; Bilirubin Negative (Negative); Blood Negative (Negative); Clarity Clear (Clear); Glucose Negative (Negative); HCT 42.4 % (40.0-50.0); HGB 14.5 g/dL (13.5-17.5); Immature Grans % 0.4; Ketones Negative (Negative); Leukocyte Esterase Negative (Negative); MCH 30.5 pg (27.0-33.0); MCHC 34.2 % (32.0-36.0); MCV 89.1 fL (80-95); MPV 10.4 fL (8.0-11.0); Monocytes % 12.4; Neutrophils % 55.4; Nitrite Negative (Negative); Nucleated RBC 0 %; Platelet Count 226 10^3/uL (130-400); RBC 4.76 10^6/uL (4.36-5.78); RDW 12.1 % (11.8-14.1); RDW-SD 39.8 fL; Specific Gravity >= 1.030 (1.005-1.025); Urobilinogen 0.2 EU/dL (Up TO 0.2); WBC 8.25 10^3/uL (4.4-10.8)
[2021-05-01 21:31] LABS: ALT 37 U/L (16-63); AST 27 U/L (15-37); Albumin 3.9 g/dL (3.4-5.0); Alkaline Phosphatase 74 U/L (46-116); Anion Gap 9.9 mmol/L (3-11); BUN 18 mg/dL (7-18); Bilirubin, Total 0.2 mg/dL (0.2-1.0); CO2 24.1 mmol/L (21.0-32.0); Calcium 8.4 mg/dL (8.5-10.1); Chloride 104 mmol/L (98-107); Glucose 125 mg/dL (74-106); Potassium 4.1 mmol/L (3.5-5.1); Sodium 138 mmol/L (136-145); Total Protein 7.7 g/dL (6.4-8.2)
[2021-05-01] MEDS: Omnipaque 350 MG/ML 50 ML BTL PO (23:09)
[2021-05-01] MEDS: Omnipaque 350 MG/ML 100 ML BTL IJ (23:28)
[2021-05-01 23:49] VITALS: BP 144/90; PULSE 77; RESP 16; O2SAT 97
[2021-05-01] MEDS: Normal Saline Flush 10 ML SYR IVP (23:49)
--- NOTE | 2021-05-02 00:26 | DI.VRAD_ITS ---
PROCEDURE INFORMATION: Exam: CT Abdomen And Pelvis With Contrast Exam date and time: 05/01/2021 9:14 PM Age: 55 years old Clinical indication: Localized; Patient HX: Left sided abdominal pain and diarrhea TECHNIQUE: Imaging protocol: Computed tomography of the abdomen and pelvis with contrast. Radiation optimization: All CT scans at this facility use at least one of these dose optimization techniques: automated exposure control; mA and/or kV adjustment per patient size (includes targeted exams where dose is matched to clinical indication); or iterative reconstruction. Contrast material: OMNIPAQUE 350; Contrast volume: 100 ml; Contrast route: INTRAVENOUS (IV); COMPARISON: CT LUMBAR SPINE W 07/02/2020 9:28 PM FINDINGS: Liver: There are multiple sub cm low-dense liver lesions which are too small to characterize but likely represent cysts or benign biliary hamartomas. Gallbladder and bile ducts: Normal. No calcified stones. No ductal dilation. Pancreas: The pancreas is mildly atrophic, but otherwise appears unremarkable without focal lesion or evidence of acute inflammation. Spleen: Normal. No splenomegaly. Adrenal glands: Normal. No mass. Kidneys and ureters: No renal or ureteral stones are identified. There is no hydronephrosis or hydroureter. Stomach and bowel: There is no evidence of small or large bowel inflammation. There is no evidence for bowel obstruction. Appendix: No evidence of appendicitis. Intraperitoneal space: Unremarkable. No free air. No significant fluid collection. Vasculature: Unremarkable. No abdominal aortic aneurysm. Lymph nodes: There are a few borderline dilated left external iliac lymph nodes measuring up to 1 cm, as seen on image 785, series 7. There are other prominent subcentimeter bilateral inguinal lymph nodes and right external iliac lymph nodes. Urinary bladder: No bladder stones are identified. Reproductive: Unremarkable as visualized. Bones/joints: There is multilevel mild spondylosis of the lower thoracic and lumbar spine. There is mild anterior wedging the T11 and T12 vertebra which appears chronic. There is mild facet arthrosis of the lower lumbar spine. There is mild degenerative change of both hips. Soft tissues: There is a 2.4 x 1.7 cm fat containing umbilical hernia. IMPRESSION: 1. No acute process within the abdomen or pelvis identified. 2. Small fat containing umbilical hernia. 3. Borderline enlarged left external iliac lymph nodes with other prominent subcentimeter pelvic lymph nodes, likely reactive. Dictated and Authenticated by: Vishal Lopez MD. Ordering:KAVITA Rolle MD
[2021-05-02 00:31] VITALS: BP 126/102; PULSE 82; RESP 18; O2SAT 98
== END 2021-05-02 00:31 | disposition home or self-care (01) ==
PROVIDERS: Emergency Provider Nurse Practitioner Acute Care; PCP Family Medicine
DX: B34.9 Viral infection, unspecified (principal); R10.9 Unspecified abdominal pain; R19.7 Diarrhea, unspecified; R51.9 Headache, unspecified
CPT/HCPCS: 80053; 96361; 96374; 96375; 99285; 74177; 81003; 85025; 99284; J0780; J1885; J3490; Q9967

== ENCOUNTER 2021-07-17 19:16 | Outpatient (REF) | payer BC, SELFPAY ==
[2021-07-17 20:29] LABS: VALPROIC ACID 26.3 ug/mL
[2021-07-17 23:07] LABS: Calculated LDL 138 mg/dL (<100); Cholesterol 230 mg/dL (<200); HDL Cholesterol 35 mg/dL (40-60); Triglyceride 288 mg/dL (<150)
[2021-07-17 23:08] LABS: TROPONIN-I 2.9 ug/mL (4.0-12.0)
[2021-07-18 18:19] LABS: PSA, Screening 0.6 ng/mL (0.0-3.5)
[2021-07-19 10:12] LABS: Hepatitis C Ab w Rflx HCV PCR Negative (Negative)
== END 2021-07-17 19:17 | disposition home or self-care (01) ==
LOC: LBN 19:16
PROVIDERS: PCP Family Medicine; Visit Provider Family Medicine
DX: E78.5 Hyperlipidemia, unspecified (principal); G40.909 Epilepsy, unspecified, not intractable, without status epilepticus; Z51.81 Encounter for therapeutic drug level monitoring; Z79.899 Other long term (current) drug therapy; Z11.59 Encounter for screening for other viral diseases; Z12.5 Encounter for screening for malignant neoplasm of prostate
CPT/HCPCS: 80061; 84153; 86803; 80156; 80164

== ENCOUNTER 2021-09-23 09:13 | Emergency (ER) | payer BC, SELFPAY ==
[2021-09-23 09:19] VITALS: BP 147/100; PULSE 81; RESP 16; TEMP 36.6; O2SAT 96
--- NOTE | 2021-09-23 09:21 | ED.GENADUL_ITS ---
Discharge Plan Disposition Patient Disposition: HOME Condition: Stable Discharge Details Clinical Impression: Sinusitis Primary Care Provider: Parish Russell ED Provider: Richard Osborn Home Meds and New Rx's Prescriptions: New amoxicillin-pot clavulanate [Augmentin] 875-125 mg tablet 1 tab PO BID Qty: 14 RF: 0 Continued divalproex [Depakote ER] 500 mg tablet extended release 24 hr 1,000 mg PO DAILY Qty: 180 RF: 3 carbamazepine 200 mg tablet extended release 12 hr 200 mg PO DAILY Qty: 90 RF: 3 pantoprazole 40 mg tablet,delayed release (DR/EC) 40 mg PO HS Qty: 90 RF: 3 Discharge Instructions Instructions: Sinusitis (ED) Additional Instructions: Most sinusitis are viral and do not require antibiotics. Your COVID swab is pending, please quarantine until it has resulted negative hopefully in the next 2-3 days. Over the next 2-3 days, I recommend taking seqy-yfg-[id number] medications for symptomatic control. Assuming your COVID swab is negative and you are not getting any relief with [id number] medications in the next 2-3 days, I then recommend that you fill and take the Augmentin as directed. Please watch for new or worsening symptoms and return to the ER for any concerns. Discharge Data Discharge Date/Time-TO BE ENTERED AT DEPARTURE: 09/23/21 10:00 Medical Decision Making This is a 56-year-old gentleman, former smoker, vaccinated against COVID, presenting for concern of sinus infection. Reports sinus pressure and clear nasal drainage over the past several days. Denies sick contacts. Denies global headache, fever, sore throat, cough, shortness of breath. Has not taking any plyc-pfa-[id number] medications. Clinically he appears well, nontoxic. Will obtain a COVID test. Likely viral in nature, do not see clear indication for antibiotic therapy. Recommend aggressive ccql-pgh-[id number] medication treatment for symptomatic control. Will provide a prescription for Augmentin to fill in 2-3 days if his COVID test comes back negative and he remains symptomatically with the lxsi-xgo-[id number] meds. Patient is agreeable to this plan and has no additional questions or concerns. Standard discharge and return precautions provided This documentation was generated using [employer] system, please disregard any oddities of phrase or misspellings. Medical Records Medical records reviewed: Yes I reviewed the patient's medical records. HPI General Mode of arrival: ambulatory . Date/Time Provider Initiated Documentation: 09/23/21 09:19 . Limitations to Documentation: no limitations . Information obtained by: patient . History of Present Illness 56 year old M presents to the emergency department with the chief complaint of Sinus infection, described as mild, with intensity rated at 3. Quality is described as aching, and is localized to the face. Patient reports no radiation. Patient started experiencing this day(s) (5) and it has been constant. No relieving factors improve symptom(s), No exacerbating factors reported . Patient notes headaches (A facial headache); denies cough and fever/chills. Patient did receive the following treatments prior to arrival, none Related Data Home Medications Medication Instructions Recorded Confirmed carbamazepine 200 mg 200 mg PO DAILY #90 tab-cap 01/17/21 09/23/21 tablet,extended release,12 hr divalproex 500 mg tablet,extended 1,000 mg PO DAILY #180 tab-cap 01/17/21 09/23/21 release 24 hr pantoprazole 40 mg tablet,delayed 40 mg PO HS #90 tab-cap 04/24/21 09/23/21 release amoxicillin-pot clavulanate 1 tab PO BID #14 tab 09/23/21 [Augmentin] Previous Rx's Medication Instructions Recorded carbamazepine 200 mg 200 mg PO DAILY #90 tab-cap 01/17/21 tablet,extended release,12 hr divalproex 500 mg tablet,extended 1,000 mg PO DAILY #180 tab-cap 01/17/21 release 24 hr pantoprazole 40 mg tablet,delayed 40 mg PO HS #90 tab-cap 04/24/21 release amoxicillin-pot clavulanate 1 tab PO BID #14 tab 09/23/21 [Augmentin] Allergies Allergy/AdvReac Type Severity Reaction Status Date / Time No Known Allergies Allergy Verified 09/23/21 09:24 General XAVIER: 3 Review of Systems Constitutional Constitutional: Denies fever(s) and Reports headache(s) (No global headache, reports a facial headache) Eyes Eyes: Denies change in vision and Denies eye pain ENT Ears, Nose, Mouth, and Throat: Reports nasal congestion, Reports nasal discharge, Denies neck pain and Denies sore throat Cardiovascular Cardiovascular: Denies chest pain and Denies dyspnea Respiratory Respiratory: Denies cough and Denies dyspnea Gastrointestinal Gastrointestinal: Denies abdominal pain, Denies nausea and Denies vomiting Musculoskeletal Musculoskeletal: Denies neck pain Integumentary/Breasts Skin/Breast: Denies rash PFS All Active Problems Sinusitis (Acute) Acute viral syndrome (Acute) Screening for colon cancer (Acute) Hypertension (Chronic) Internal derangement of right knee (Acute) Right medial knee pain (Acute) Epilepsy (Acute) Venous stasis ulcer (Acute) Encephalitis (Acute) Abdominal pain (Acute) Erectile disorder due to medical condition in male (Acute) Headache (Acute) ? occipital neuralgia no red flag signs Sinus congestion (Acute) trial some nasal steroid Tendonitis, Achilles, left (Acute 11/24/17) Small bowel obstruction (Acute 02/26/13) 02/18 Seizure disorder (Acute 02/26/13) same meds check levels Hyperlipidemia (Acute) Hiatal hernia (Acute) Gastroesophageal reflux disease with esophagitis (Acute) Erectile dysfunction of organic origin (Acute 07/29/16) Chest pain (Acute 11/06/17) precordial Bone bruise (Acute 09/11/15) Abdominal pain (Active 02/18/13) Generalized epilepsy (Active) Barretts esophagus (Chronic) Surgical History [place]04[place]02[place]13[place] [facility] [place] [facility] [place] of esophagogastroduodenoscopy (EGD) (~07/06/18) Family History Mother No problems noted. Father No problems noted. Sister No problems noted. Sister No problems noted. Grandfather Personal history of malignant neoplasm COLON Grandfather No problems noted. Grandmother Diabetes Grandmother No problems noted. Daughter No problems noted. 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 Pets and animals: No Do you think of yourself as: straight/heterosexual Current gender identity: male What is your relationship status?: How often do you talk on the phone with friends or family?: twice per week How often do you get together with friends or relatives?: twice per week How often do you attend zoroastrian or pentecostalism services?: 1-3 times per year Do you belong to any clubs or organized social groups?: yes Panel score (0-1 are the most socially isolated patients): 2 What type of physical activity do you participate in: none Lilibeth/Hindu: Zoroastrianism Seatbelt use: sometimes Helmet use: Yes Helmet use: always Drive intox or ride w/intox public transit bus driver: No Do you feel safe at home: Yes Do you feel safe in your relationship?: Yes Exam Const General: cooperative, healthy appearing, comfortable and no acute distress Orientation: alert, awake and oriented x3 HENMT Head: normal to inspection, normocephalic and atraumatic Ears: external ears normal, TM's normal bilaterally and TM normal on the right General nose exam: nasal discharge clear bilaterally Face and sinus: face symmetric and sinus tenderness frontal and maxillary Mouth: moist mucous membranes Teeth and gingiva: poor dentition Throat: posterior oropharynx normal Eyes General: appearance normal, both eyes and all related structures Conjunctivae: conjunctivae normal Neck Neck: normal visual inspection, full ROM, no lymphadenopathy, no meningeal signs, trachea midline, supple and nontender Resp Effort & Inspection: normal respiratory effort and able to speak in complete sentences Auscultation: clear to auscultation bilaterally Cardio Rate: regular rate Rhythm: regular rhythm Skin General skin exam: no rashes or lesions noted Neuro General: patient alert, patient awake, moves all extremities and no focal motor deficits Cognition: normal cognition Speech: speech normal Sensory Exam: no sensory deficits noted Psych Appearance: grossly normal Mental Status: mental status grossly normal
[2021-09-23 10:02] VITALS: BP 160/107; PULSE 73; RESP 18; O2SAT 99
[2021-09-24 10:10] LABS: COVID-19 RT-PCR UVMMC Result Negative (Negative)
== END 2021-09-23 10:00 | disposition home or self-care (01) ==
PROVIDERS: Emergency Provider Physician Assistant; PCP Family Medicine
DX: J01.90 Acute sinusitis, unspecified (principal); Z20.822 Contact with and (suspected) exposure to COVID-19
CPT/HCPCS: 99283; U0003

== ENCOUNTER 2021-12-08 19:41 | Emergency (ER) | payer BC, SELFPAY ==
[2021-12-08 19:53] VITALS: BP 158/112; PULSE 77; RESP 18; TEMP 36.4; O2SAT 98
--- NOTE | 2021-12-08 20:16 | ED.GENADUL_ITS ---
Discharge Plan Disposition Patient Disposition: HOME Condition: Stable Discharge Details Clinical Impression: Chronic wound of extremity Primary Care Provider: Parish Russell ED Provider: Ant Mills Home Meds and New Rx's Prescriptions: New amoxicillin-pot clavulanate 875-125 mg tablet 1 tab PO BID Qty: 14 0RF No Action divalproex [Depakote ER] 500 mg tablet extended release 24 hr 1,000 mg PO DAILY Qty: 180 3RF carbamazepine 200 mg tablet extended release 12 hr 200 mg PO DAILY Qty: 90 3RF pantoprazole 40 mg tablet,delayed release (DR/EC) 40 mg PO HS Qty: 90 3RF Discharge Instructions Additional Instructions: [facility] radiology on Friday to arrange for an ultrasound take 81mg aspirin daily follow up with your primary care provider within 1 week if you feel more ill, have fevers or difficulty breathing return to the [facility] department Medical Decision Making 56 yo male who has a history of a chronic wound on his anterior left mid lower leg comes in with chief complaint of mild erythema around it. Patient states he doesn't feel it is much changed from baseline, and has had it for years. He says someone told him it looked infected and referred him here. Denies fevers, chills, pain, dyspnea, chest pain. He does have mild swelling of the left lower leg and he says this is also chronic and unchanged. Has intact sensation and pulses. He has a 1cm area of excoriated skin that he says is the chronic wound on the anterior mid lower leg and has 3cm surrouding mild erythema that blanches and is not warm. No crepitus or drainage or fluctuance. HIs symptoms seem more chronic but after discussing with him he prefers to start antibiotics and will start augmentin. HE appears well systemically and has no fever or pain so doubt sepsis and do not feel labs or IV antibiotics indicated. I did recommend an u/s and will have him return Friday to have an u/s. Offered to start anticoagulationas well until this is done but he declines and has clinical decision making capacity. Return precautions given and advised to f/u with pcp Differential Diagnosis Differential Diagnosis: chronic wound, venous stasis, dvt HPI General Mode of arrival: ambulatory . Date/Time Provider Initiated Documentation: 12/08/21 20:01 . Limitations to Documentation: no limitations . Information obtained by: patient . History of Present Illness 56 year old M presents to the emergency department with the chief complaint of left leg wound, described as moderate, Patient started experiencing this year(s) (2) and it has been constant. improves with No relieving factors improve symptom(s), No exacerbating factors reported . Patient did receive the following treatments prior to arrival, none Related Data Home Medications Medication Instructions Recorded Confirmed carbamazepine 200 mg 200 mg PO DAILY #90 tab-cap 01/17/21 10/03/21 tablet,extended release,12 hr divalproex 500 mg tablet,extended 1,000 mg PO DAILY #180 tab-cap 01/17/21 10/03/21 release 24 hr (Depakote ER) pantoprazole 40 mg tablet,delayed 40 mg PO HS #90 tab-cap 04/24/21 10/03/21 release amoxicillin 875 mg-potassium 1 tab PO BID #14 tab 12/08/21 clavulanate 125 mg tablet Previous Rx's Medication Instructions Recorded carbamazepine 200 mg 200 mg PO DAILY #90 tab-cap 01/17/21 tablet,extended release,12 hr divalproex 500 mg tablet,extended 1,000 mg PO DAILY #180 tab-cap 01/17/21 release 24 hr (Depakote ER) pantoprazole 40 mg tablet,delayed 40 mg PO HS #90 tab-cap 04/24/21 release amoxicillin 875 mg-potassium 1 tab PO BID #14 tab 12/08/21 clavulanate 125 mg tablet Allergies Allergy/AdvReac Type Severity Reaction Status Date / Time No Known Allergies Allergy Verified 10/03/21 08:26 General Stated Complaint: Cellulitis XAVIER: 3 Review of Systems All systems reviewed & are unremarkable except as noted in HPI and below Constitutional Constitutional: Denies chills, Denies fever(s) and Denies weakness Eyes Eyes: Denies loss of vision Cardiovascular Cardiovascular: Denies chest pain and Denies dyspnea Respiratory Respiratory: Denies cough and Denies dyspnea Gastrointestinal Gastrointestinal: Denies abdominal pain, Denies nausea and Denies vomiting Genitourinary Genitourinary: Denies dysuria Neurologic Neurologic: Denies loss of vision and Denies weakness PFSH All Active Problems (Updated 12/08/21 @ 20:21 by Ant Mills MD) Chronic wound of extremity (Acute) Acute viral syndrome (Acute) Screening for colon cancer (Acute) Hypertension (Chronic) Internal derangement of right knee (Acute) Right medial knee pain (Acute) Epilepsy (Acute) Venous stasis ulcer (Acute) Encephalitis (Acute) Abdominal pain (Acute) Erectile disorder due to medical condition in male (Acute) Headache (Acute) ? occipital neuralgia no red flag signs Sinus congestion (Acute) trial some nasal steroid Tendonitis, Achilles, left (Acute 11/24/17) Small bowel obstruction (Acute 02/26/13) 02/18 Seizure disorder (Acute 02/26/13) same meds check levels Hyperlipidemia (Acute) Hiatal hernia (Acute) Gastroesophageal reflux disease with esophagitis (Acute) Erectile dysfunction of organic origin (Acute 07/29/16) Chest pain (Acute 11/06/17) precordial Bone bruise (Acute 09/11/15) Abdominal pain (Active 02/18/13) Generalized epilepsy (Active) Barretts esophagus (Chronic) Surgical History EGD - MAC (04/02/13) [facility] [place] [place] EGD - MAC (07/24/16) [facility] [place] [place] History of esophagogastroduodenoscopy (EGD) (~07/06/18) Family History Mother No problems noted. Father No problems noted. Sister No problems noted. Sister No problems noted. Grandfather Personal history of malignant neoplasm COLON Grandfather No problems noted. Grandmother Diabetes Grandmother No problems noted. Daughter No problems noted. 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 Pets and animals: No Do you think of yourself as: straight/heterosexual Current gender identity: male What is your relationship status?: How often do you talk on the phone with friends or family?: twice per week How often do you get together with friends or relatives?: twice per week How often do you attend denominational or uatsdin services?: 1-3 times per year Do you belong to any clubs or organized social groups?: yes Panel score (0-1 are the most socially isolated patients): 2 What type of physical activity do you participate in: none Lilibeth/Gnosticist: Hoahaoism Seatbelt use: sometimes Helmet use: Yes Helmet use: always Drive intox or ride w/intox local company hazmat driver: No Do you feel safe at home: Yes Do you feel safe in your relationship?: Yes Exam Const General: no acute distress Orientation: alert HENMT Head: normal to inspection Ears: external ears normal General nose exam: external nose normal Mouth: moist mucous membranes Eyes General: appearance normal, both eyes and all related structures Neck Neck: normal visual inspection Resp Effort & Inspection: normal respiratory effort and able to speak in complete sentences Cardio Rate: regular rate Skin General skin exam: no jaundice Neuro General: patient alert and patient oriented x3 Extrem General: full ROM and capillary refill normal Psych Mental Status: mental status grossly normal Course Vital Signs Vital signs: Vital Signs Temperature 36.4 C L 12/08/21 19:53 Pulse 77 12/08/21 19:53 Respiratory Rate 18 12/08/21 19:53 Blood Pressure 158/112 H 12/08/21 19:53 Pulse Oximetry 98 12/08/21 19:53 Temperature 36.4 C L 12/08/21 19:53 Temperature Source Tympanic 12/08/21 19:53 Pulse 77 12/08/21 19:53 Respiratory Rate 18 12/08/21 19:53 Respiratory Effort 12/08/21 19:57 Blood Pressure 158/112 H 12/08/21 19:53 Blood Pressure Position Supine 12/08/21 19:53 Pulse Oximetry 98 12/08/21 19:53 Oxygen Delivery Method Room Air 12/08/21 19:53 Oxygen Flow Rate 0 12/08/21 19:53 Pain Level 0 12/08/21 19:53 PAWSS Have you Been Recently Intoxicated or Drunk Within the Last 30 days?: No Have you Ever Experienced Previous Episodes of Alcohol Withdrawal?: No Have you ever Experienced Withdrawal Seizures?: No Have you ever Experienced Delirium Tremens(DT)s?: No Have you ever undergone Alcohol Rehabilitation Treatment (i.e, inpt ot outpatient treatment programs)?: No Have you ever Experienced Blackouts?: No Have you ever Combined Alcohol with other Downers within the last 90 days?: No Have you ever Combined Alcohol with any other Substance of Abuse during the last 90 days?: No Positive Blood Alcohol level on Presentation? [PCS.BAL]: No Evidence of Increased Autonomic Activity (i.e. HR>120, tremor, sweating, agitation, nausea)?: No Result: 0
== END 2021-12-08 20:33 | disposition home or self-care (01) ==
PROVIDERS: Emergency Provider Emergency Medicine; PCP Family Medicine
DX: L97.828 Non-pressure chronic ulcer of other part of left lower leg with other specified severity (principal); L03.116 Cellulitis of left lower limb
CPT/HCPCS: 99283

== ENCOUNTER 2022-10-24 12:04 | Outpatient (CLI) | payer BC, SELFPAY ==
--- NOTE | 2022-10-24 11:14 | DI.RAD_ITS ---
Exam(s) XR SHOULDER RT COMPLETE 2+V EXAM: XR SHOULDER RT COMPLETE 2+V CLINICAL HISTORY: R shoulder injury. TECHNIQUE: 2D digital imaging was performed. COMPARISON: No exams were available for comparison FINDINGS: Four views: No evidence fracture nor dislocation or abnormal soft calcifications. Subacromial space appears unre markable. There are no degenerative changes in the glenohumeral joint and AC joint. Ipsilateral cla vicle intact. Bone density normal. No osseous lesions. IMPRESSION: No significant osseous findings. DATA REPOSITORY: RADIATION DOSE DELIVERED:
== END 2022-10-24 12:05 | disposition home or self-care (01) ==
LOC: DIORS 12:04
PROVIDERS: PCP Family Medicine; Referring Provider Family Medicine; Visit Provider Physician Assistant
DX: M25.511 Pain in right shoulder (principal)
CPT/HCPCS: 73030

== ENCOUNTER 2023-03-04 10:58 | Emergency (ER) | payer BC, SELFPAY ==
[2023-03-04 11:08] VITALS: BP 133/81; PULSE 73; RESP 18; TEMP 36.3; O2SAT 95
--- NOTE | 2023-03-04 11:24 | ED.GENADUL_ITS ---
Discharge Plan Disposition Patient Disposition: Home Condition: Stable Discharge Details Clinical Impression: Subconjunctival hemorrhage of left eye Primary Care Provider: Parish Russell ED Provider: Tiffanie Ellsworth Home Meds and New Rx's Prescriptions: Continued ibuprofen 600 mg tablet 600 mg PO Q4H PRN PRN acetaminophen 500 mg capsule 1,000 mg PO Q4H PRN carbamazepine 200 mg tablet extended release 12 hr 200 mg PO DAILY Qty: 90 3RF divalproex [Depakote ER] 500 mg tablet extended release 24 hr 1,000 mg PO DAILY Qty: 180 3RF lisinopril 10 mg tablet 10 mg PO DAILY Qty: 90 3RF pantoprazole 40 mg tablet,delayed release (DR/EC) 40 mg PO BID Qty: 180 3RF Rx Instructions: dose increase 01/07/23 Discharge Instructions Instructions: Subconjunctival Hemorrhage (ED) Additional Instructions: Your intraocular pressure was within normal limits at 16.0, no evidence of corneal abrasion or foreign body. You do have some burst capillaries underneath the lining of your eye. This can be caused by coughing sneezing or increased pressure. Please follow-up with your ophthalmology at [facility] or [facility] this week. Return to the ER for any worsening problems with vision or any concerns. [facility] Phone:?[phone] tel:[phone] Fax:?[phone] [place] [id number] [email or web address] Referrals: [facility] [Outside] Medical Decision Making 57-year-old male presents to the ER with chief complaint of left eye pain which has been ongoing for the last 3 to 4 days he reports it is getting worse. He does have some burst capillaries noted to the lateral aspect of his left eye. He also reports some blurry vision. Denies any trauma or foreign body sensation no drainage. He does have a past medical history of epilepsy, GERD. He reports a little bit of pain behind his left eye but no significant headache no neurodeficits. Intraocular pressure measured at 16.0, fluorescein eye exam performed with Stone lamp no uptake in dye noted. EOMs intact. There is subconjunctival hemorrhage noted in the lower aspect approximately 6:00 and 3:00 on the lateral side. Red reflex within normal limits. Discussed follow-up with ophthalmology at [facility] or [facility] patient verbalized understanding. No neurodeficits. No evidence to suggest needing to do any other further work-up. This text was generated using [employer] system, please disregard any oddities of phrase or misspellings. HPI General Mode of arrival: ambulatory . Date/Time Provider Initiated Documentation: 03/04/23 11:00 . Limitations to Documentation: no limitations . Information obtained by: patient, RN notes reviewed and old records reviewed . HPI Narrative: 57-year-old male presents to the ER with chief complaint of left eye pain which has been ongoing for the last 3 to 4 days he reports it is getting worse. He does have some burst capillaries noted to the lateral aspect of his left eye. He also reports some blurry vision. Denies any trauma or foreign body sensation no drainage. He does have a past medical history of epilepsy, GERD. He reports a little bit of pain behind his left eye but no significant headache no neurodeficits. Related Data Home Medications Medication Instructions Recorded Confirmed acetaminophen 500 mg capsule 1,000 mg PO Q4H PRN 10/02/22 03/04/23 carbamazepine 200 mg 200 mg PO DAILY #90 tab-caps 10/02/22 03/04/23 tablet,extended release,12 hr divalproex 500 mg tablet,extended 1,000 mg PO DAILY #180 tab-caps 10/02/22 03/04/23 release 24 hr (Depakote ER) ibuprofen 600 mg tablet 600 mg PO Q4H PRN PRN 10/02/22 03/04/23 lisinopril 10 mg tablet 10 mg PO DAILY #90 tabs 12/06/22 03/04/23 pantoprazole 40 mg tablet,delayed 40 mg PO BID #180 tab-caps 01/07/23 03/04/23 release Previous Rx's Medication Instructions Recorded carbamazepine 200 mg 200 mg PO DAILY #90 tab-caps 10/02/22 tablet,extended release,12 hr divalproex 500 mg tablet,extended 1,000 mg PO DAILY #180 tab-caps 10/02/22 release 24 hr (Depakote ER) lisinopril 10 mg tablet 10 mg PO DAILY #90 tabs 12/06/22 pantoprazole 40 mg tablet,delayed 40 mg PO BID #180 tab-caps 01/07/23 release Allergies Allergy/AdvReac Type Severity Reaction Status Date / Time No Known Allergies Allergy Verified 03/04/23 11:11 General Stated Complaint: EyeProblem XAVIER: 4 Review of Systems All systems reviewed & are unremarkable except as noted in HPI and below Eyes Eyes: Reports as per HPI, Reports blurry vision and Reports eye pain PFSH All Active Problems (Updated 03/04/23 @ 11:46 by Tiffanie Ellsworth NP) Subconjunctival hemorrhage of left eye (Acute) Tendonitis of long head of biceps brachii of right shoulder (Acute) Right rotator cuff tendonitis (Acute) DEPO MEDROL 10/24/22 Shoulder pain, right (Acute) Acute viral syndrome (Acute) Screening for colon cancer (Acute) Hypertension (Chronic) Internal derangement of right knee (Acute) Right medial knee pain (Acute) Epilepsy (Acute) Venous stasis ulcer (Acute) Encephalitis (Acute) Abdominal pain (Acute) Erectile disorder due to medical condition in male (Acute) Headache (Acute) ? 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) Surgical History EGD - MAC (04/02/13) [facility] [place]GD - MAC (07/24/16) [facility] [place] History of esophagogastroduodenoscopy (EGD) (~07/06/18) Family History Mother No problems noted. Father No problems noted. Sister No problems noted. Sister No problems noted. Grandfather Personal history of malignant neoplasm COLON Grandfather No problems noted. Grandmother Diabetes Grandmother No problems noted. Daughter No problems noted. 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 Pets and animals: No Sexually active: Yes Do you think of yourself as: straight/heterosexual Current gender identity: male What is your relationship status?: How often do you talk on the phone with friends or family?: decline to answer How often do you get together with friends or relatives?: decline to answer How often do you attend roman catholic or mosque services?: decline to answer Do you belong to any clubs or organized social groups?: decline to answer Panel score (0-1 are the most socially isolated patients): 0 What type of physical activity do you participate in: none Lilibeth/Mandaen: None Seatbelt use: sometimes Helmet use: Yes Helmet use: always Drive intox or ride w/intox cart driver: No Do you feel safe at home: Yes Do you feel safe in your relationship?: Yes Exam Eyes Alignment and Position: alignment normal and position normal Periorbital: periorbital findings normal Eyelids: eyelids normal Conjunctivae: conjunctival abnormality left conjunctival injection localized (left lateral) and subconjunctival hemorrhage Cornea: corneas normal and fluorescein used Pupils: PERRL and normal by confrontation EOM: EOM intact bilaterally Direct ophthalmoscopy: normal light reflex Other: IOPmeasured at 16.0 Eyes/upper lids images: 1. Subconjunctival hemorrhage noted. No uptake in dye, IOP measured at 16.0, no Foreign body no corneal abrasion noted, red reflex intact. Course Vital Signs Vital signs: Vital Signs Temperature 36.3 C L 03/04/23 11:08 Pulse 73 03/04/23 11:08 Respiratory Rate 18 03/04/23 11:08 Blood Pressure 133/81 03/04/23 11:08 Pulse Oximetry 95 03/04/23 11:08 Temperature 36.3 C L 03/04/23 11:08 Temperature Source Skin 03/04/23 11:08 Pulse 73 03/04/23 11:08 Respiratory Rate 18 03/04/23 11:08 Respiratory Effort Normal 03/04/23 11:11 Blood Pressure 133/81 03/04/23 11:08 Blood Pressure Position Sitting 03/04/23 11:08 Pulse Oximetry 95 03/04/23 11:08 Oxygen Delivery Method Room Air 03/04/23 11:08 Oxygen Flow Rate 0 03/04/23 11:08 Pain Level 3 03/04/23 11:08
== END 2023-03-04 12:07 | disposition home or self-care (01) ==
PROVIDERS: Emergency Provider Registered Nurse Emergency; PCP Family Medicine
DX: H11.32 Conjunctival hemorrhage, left eye (principal); H57.12 Ocular pain, left eye
CPT/HCPCS: 99283

== ENCOUNTER → 2023-08-22 00:32 | Outpatient (CLI) | payer BC, SELFPAY ==
--- NOTE | 2023-08-22 08:15 | DI.RAD_ITS ---
Exam(s) XR CERVICAL SPINE COMP 4-5V EXAM: XR CERVICAL SPINE COMP 4-5V CLINICAL HISTORY: neck pain with some left shoulder pain/tingling,m54.2. TECHNIQUE: 2D digital imaging was performed. Five views were performed. COMPARISON: No exams were available for comparison FINDINGS: BONES: No fracture or destructive lesion. Vertebral bodies are unremarkable. DISKS: Arm moderate narrowing of the 5 6 disc space with endplate osteophytes. Mild narrowing of the C6-7 disc space with endplate osteophytes. Mild facet degenerative changes. Neural foraminal encro achment seen on the right at C5-6 and C6-7 and on the left at C5-6. The remaining intervertebral dis c spaces are maintained. ALIGNMENT: Cervical spinal alignment is within normal limits. The odontoid and atlantoaxial articulat ions are normal. SOFT TISSUE: Normal. The lung apices are clear. IMPRESSION: Degenerative changes, greatest at C5-6. DATA REPOSITORY: RADIATION DOSE DELIVERED:
== END ==
PROVIDERS: PCP Family Medicine; Visit Provider Family Medicine
DX: M50.022 Cervical disc disorder at C5-C6 level with myelopathy (principal)
CPT/HCPCS: 72050

== ENCOUNTER 2023-10-30 12:29 | Outpatient (CLI) | payer BC, SELFPAY ==
--- NOTE | 2023-10-30 12:15 | RT.EKG_ITS ---
APPROVED REPORT Exam: Resting ECG Reason for Exam: chest discomfort Patient Location: O HR:74 bpm ECG Measurements Heart Rate 74 AXIS SC 169 P 71 QRSd 104 QRS 81 QT 380 T 30 QTc 422 Conclusion Sinus rhythm...normal P axis, V-rate 50- 99 Normal Electrocardiogram
== END 2023-10-30 12:30 | disposition home or self-care (01) ==
LOC: DI.CM 12:30
PROVIDERS: PCP Family Medicine; Visit Provider Nurse Practitioner Family
DX: R07.89 Other chest pain (principal)
CPT/HCPCS: 93010

== ENCOUNTER 2023-10-30 13:22 | Emergency (ER) | payer BC, SELFPAY ==
[2023-10-30] VITALS (30 sets, daily range): BP systolic 159–197; BP diastolic 90–139; PULSE 64–91; RESP 7–20; O2SAT 95–100
--- NOTE | 2023-10-30 13:15 | RT.EKG_ITS ---
APPROVED REPORT Exam: Resting ECG Reason for Exam: Patient Location: E HR:75 bpm ECG Measurements Heart Rate 75 AXIS MO 169 P 56 QRSd 104 QRS 97 QT 375 T 28 QTc 419 Conclusion Sinus rhythm...normal P axis, V-rate 60- 99
[2023-10-30 13:55] LABS: Abs Immature Grans 0.03 10^3/uL (0.0-0.06); Absolute Eosinophil Count 0.58 10^3/uL (0.0-0.7); Absolute Lymphocyte Count 1.67 10^3/uL (1.2-3.4); Absolute Monocyte Count 0.66 10^3/uL (0.1-0.8); Absolute Neutrophil Count 4.84 10^3/uL (1.2-6.7); Basophils % 1.3; Eosinophils % 7.4; HCT 43.6 % (40.0-50.0); HGB 14.6 g/dL (13.5-17.5); Immature Grans % 0.4; Lymphocytes % 21.2; MCH 29.4 pg (27.0-33.0); MCHC 33.5 % (32.0-36.0); MCV 88 fL (80-95); MPV 10.8 fL (8.0-11.0); Monocytes % 8.4; Neutrophils % 61.3; Platelet Count 217 10^3/uL (130-400); RBC 4.96 10^6/uL (4.36-5.78); RDW 12.2 % (11.8-14.1); RDW-SD 39.1 fL; WBC 7.88 10^3/uL (4.4-10.8)
[2023-10-30 14:12] LABS: ALT 34 U/L (16-63); AST 24 U/L (15-37); Alkaline Phosphatase 88 U/L (46-116); Anion Gap 9.3 mmol/L (3-11); BUN 14 mg/dL (7-18); Bilirubin, Total 0.4 mg/dL (0.2-1.0); CO2 27.7 mmol/L (21.0-32.0); Chloride 102 mmol/L (98-107); Estimated GFR 88.33 (mL/min/1.73m2); Glucose 96 mg/dL (74-106); Lipase 29 U/L (16-77); Sodium 139 mmol/L (136-145); Troponin I < 50 ng/L (< or =60)
--- NOTE | 2023-10-30 14:45 | DI.RAD_ITS ---
Exam(s) XR CHEST 2V PA LATERAL EXAM: XR CHEST 2V PA LATERAL CLINICAL HISTORY: chest pain. TECHNIQUE: 2D digital imaging was performed. COMPARISON: No exams were available for comparison FINDINGS: 2 views: Heart size is normal. The mediastinum is not widened. Lungs are clear. No infiltrates nor pleural effusions. IMPRESSION: No acute pulmonary findings. DATA REPOSITORY: RADIATION DOSE DELIVERED:
--- NOTE | 2023-10-30 17:04 | NUR.NOTE ---
Referral faxed to PCP for chest pain, blood pressure to be seen by next week. Nursing Note:
--- NOTE | 2023-11-01 08:30 | ED.GENADUL_ITS ---
Discharge Plan Disposition Patient Disposition: Home Condition: Stable Discharge Details Clinical Impression: Chest pain Primary Care Provider: Parish Russell ED Provider: Misty Rand Home Meds and New Rx's Prescriptions: Continued ibuprofen 600 mg tablet 600 mg PO Q4H PRN PRN acetaminophen 500 mg capsule 1,000 mg PO Q4H PRN carbamazepine 200 mg tablet extended release 12 hr 200 mg PO DAILY Qty: 90 3RF divalproex [Depakote ER] 500 mg tablet extended release 24 hr 1,000 mg PO DAILY Qty: 180 3RF pantoprazole 40 mg tablet,delayed release (DR/EC) 40 mg PO BID Qty: 180 3RF Rx Instructions: dose increase 01/07/23 losartan 50 mg tablet 50 mg PO DAILY Qty: 90 3RF No Action hydrochlorothiazide 12.5 mg tablet 12.5 mg PO DAILY Qty: 30 3RF Discharge Instructions Instructions: Chest Pain (ED) Additional Instructions: Please follow-up with your doctor, I think you would benefit from an outpatient stress test Continue with your daily activities and medications, I recommend you have your blood pressure rechecked by your primary care physician within the next week I am placing you on follow-up for reevaluation within the next week Please return earlier should you have new or worsening complaints Referrals: Parish Russell MD [Primary Care Provider] - Discharge Data Discharge Date/Time-TO BE ENTERED AT DEPARTURE: 10/30/23 16:07 HPI General Date/Time Provider Initiated Documentation: 10/30/23 13:31 . HPI Narrative: This 58-year-old male presents with report of chest pain intermittently for the past month. States last 1 to 2 seconds and then resolves. Denies any exertional component to symptoms. Denies any diaphoresis or nausea. Has had some intermittent shortness of breath as well. Family history of coronary artery disease greater than age 50 and his father. Does not smoke, drinks occasionally per patient. History of hypertension, no history of hyperlipidemia. Denies any calf pain or swelling, recent flights, surgeries, long drives, history of coagulopathy. Denies any additional complaints at this time. States lab as episode of pain was at 6:00 this morning and was at rest. Denies illicit drug use. Denies prior cardiac evaluation. Denies any new medications. Related Data Home Medications Medication Instructions Recorded Confirmed acetaminophen 500 mg capsule 1,000 mg PO Q4H PRN 10/02/22 10/30/23 ibuprofen 600 mg tablet 600 mg PO Q4H PRN PRN 10/02/22 10/30/23 pantoprazole 40 mg tablet,delayed 40 mg PO BID #180 tab-caps 01/07/23 10/30/23 release losartan 50 mg tablet 50 mg PO DAILY #90 tabs 06/26/23 10/30/23 carbamazepine 200 mg 200 mg PO DAILY #90 tab-caps 10/01/23 10/30/23 tablet,extended release,12 hr divalproex 500 mg tablet,extended 1,000 mg (2 x 500 mg) PO DAILY 10/01/23 10/30/23 release 24 hr (Depakote ER) #180 tab-caps hydrochlorothiazide 12.5 mg tablet 12.5 mg PO DAILY #30 tabs 11/01/23 Previous Rx's Medication Instructions Recorded pantoprazole 40 mg tablet,delayed 40 mg PO BID #180 tab-caps 01/07/23 release losartan 50 mg tablet 50 mg PO DAILY #90 tabs 06/26/23 carbamazepine 200 mg 200 mg PO DAILY #90 tab-caps 10/01/23 tablet,extended release,12 hr divalproex 500 mg tablet,extended 1,000 mg (2 x 500 mg) PO DAILY 10/01/23 release 24 hr (Depakote ER) #180 tab-caps hydrochlorothiazide 12.5 mg tablet 12.5 mg PO DAILY #30 tabs 11/01/23 Allergies Allergy/AdvReac Type Severity Reaction Status Date / Time No Known Allergies Allergy Verified 10/30/23 13:29 General Stated Complaint: Chest Pain XAVIER: 3 Course Vital Signs Vital signs: Vital Signs Pulse 74 10/30/23 13:25 Respiratory Rate 18 10/30/23 13:25 Blood Pressure 179/115 H 10/30/23 13:25 Pulse 81 10/30/23 16:06 Pulse 81 10/30/23 16:01 Respiratory Rate 19 10/30/23 16:06 Respiratory Effort Normal 10/30/23 13:40 Respiratory Depth Normal 10/30/23 13:30 Respiratory Pattern Normal 10/30/23 13:30 Blood Pressure 177/128 H 10/30/23 16:06 Blood Pressure Mean 143 10/30/23 16:00 Pulse Oximetry 96 10/30/23 16:06 Lab/Test Results Lab/Test Results: Laboratory Tests Range/Units 10/30/23 10/30/23 13:40 16:47 WBC (4.4-10.8) 10^3/uL 7.88 RBC (4.36-5.78) 10^6/uL 4.96 Hgb (13.5-17.5) g/dL 14.6 Hct (40.0-50.0) % 43.6 MCV (80-95) fL 88 MCH (27.0-33.0) pg 29.4 MCHC (32.0-36.0) % 33.5 RDW (11.8-14.1) % 12.2 Plt Count (130-400) 10^3/uL 217 MPV (8.0-11.0) fL 10.8 Immature Gran % 0.4 Neutrophils % 61.3 Lymphocytes % 21.2 Monocytes % 8.4 Eosinophils % 7.4 Basophils % 1.3 Nucleated RBC % (0.0-0.3) % 0.0 Absolute Neutrophils (1.2-6.7) 10^3/uL 4.84 Absolute Lymphocytes (1.2-3.4) 10^3/uL 1.67 Absolute Monocytes (0.1-0.8) 10^3/uL 0.66 Absolute Eosinophils (0.0-0.7) 10^3/uL 0.58 Absolute Basophils (0.0-0.2) 10^3/uL 0.10 Sodium (136-145) mmol/L 139 Potassium (3.5-5.1) mmol/L 4.0 Chloride (98-107) mmol/L 102 Carbon Dioxide (21.0-32.0) mmol/L 27.7 Anion Gap (3-11) mmol/L 9.3 BUN (7-18) mg/dL 14 Creatinine (0.70-1.30) mg/dL 1.0 Est GFR (CKD-EPI 2020) (mL/min/1.73m2) 88.33 Glucose (74-106) mg/dL 96 Calcium (8.5-10.1) mg/dL 9.0 Total Bilirubin (0.2-1.0) mg/dL 0.4 AST (15-37) U/L 24 ALT (16-63) U/L 34 Alkaline Phosphatase (46-116) U/L 88 Troponin I (< or =60) ng/L < 50 Cancelled Total Protein (6.4-8.2) g/dL 8.0 Albumin (3.4-5.0) g/dL 4.0 Lipase (16-77) U/L 29 Medical Decision Making 68-year-old male presents with intermittent chest pain over the past month with some intermittent shortness of breath. Denies any fever, chills, cough Alert and oriented at time of assessment, initial blood pressures were high, discharged blood pressure 175/107, patient is on antihypertensives, although he said his blood pressure checked numerous times prior to presenting to the emergency department and was started that his blood pressure was so high he might by the dentist so I think having his blood pressure rechecked in the outpatient setting is reasonable Temperature was 36 9 Celsius Lungs clear to auscultation, chest x-ray without acute abnormality per radiology interpretation my review Low clinical suspicion for pulmonary embolism, no tachypnea, tachycardia, or hypoxia Negative troponin with symptoms for the last month, no indication for repeat t roponin patient will likely need outpatient stress test Pain-free throughout this encounter Lungs clear to auscultation, no respiratory distress, cardiac rate rhythm regular, no murmurs or rubs, no calf swelling or tenderness, neurovascularly intact bilateral lower extremities, ambulatory with steady gait without hypoxia Remainder of diagnostic blood work did not show evidence of acute abnormality Return precautions discussed in detail patient expressed understanding At this point patient does have risk factors for coronary artery disease, I think he stable for discharge home at this time however I think a stress test in the outpatient setting is reasonable at the discretion of his primary care physician and I will refer back to at this time Quality:SDOH Health Related Social Needs: No Data to Display PFSH All Active Problems (Updated 10/30/23 @ 15:51 by KAITLYNN Sexton) Chest pain (Acute) Neck pain (Acute) Umbilical hernia (Acute) JAMISON-inhibitor cough (Acute) Tendonitis of long head of biceps brachii of right shoulder (Acute) Right rotator cuff tendonitis (Acute) DEPO MEDROL 10/24/22 Shoulder pain, right (Acute) Acute viral syndrome (Acute) Screening for colon cancer (Acute) Hypertension (Chronic) Internal derangement of right knee (Acute) Right medial knee pain (Acute) Epilepsy (Acute) Venous stasis ulcer (Acute) Encephalitis (Acute) Abdominal pain (Acute) Erectile disorder due to medical condition in male (Acute) Headache (Acute) ? 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) Surgical History History of esophagogastroduodenoscopy (EGD) (~07/06/18) EGD - MAC (07/24/16) [facility] EGD - MAC (04/02/13) [facility] Family History Mother No problems noted. Father No problems noted. Sister No problems noted. Sister No problems noted. Grandfather Personal history of malignant neoplasm COLON Grandfather No problems noted. Grandmother Diabetes Grandmother No problems noted. Daughter No problems noted. FAMILY HISTORY Diabetes Heart disease Social History Smoking/Tobacco Use Status: Former Tobacco Use Quit Date: 09/08/14 Tobacco: How many years used: 40 Smokeless tobacco user: snuff Quit status: quit date established Smoking risk assessment performed?: Yes Alcohol Intake: current Alcohol Intake frequency: a few times a month Alcohol type: beer Drug use: Never Substance use type: does not use Household members: significant other Housing: house Number of Children: 3 number of grandchildren: 5 Communication Needs: None Do you need help understanding health information?: Never current occupation: [employer] Pets and animals: No Sexually active: Yes Do you think of yourself as: straight/heterosexual Current gender identity: male What is your relationship status?: How often do you talk on the phone with friends or family?: decline to answer How often do you get together with friends or relatives?: decline to answer How often do you attend oriental orthodox or hindu services?: decline to answer Do you belong to any clubs or organized social groups?: decline to answer Panel score (0-1 are the most socially isolated patients): 0 What type of physical activity do you participate in: none Lilibeth/Jainism: None Seatbelt use: sometimes Helmet use: Yes Helmet use: always Drive intox or ride w/intox courier driver: No Do you feel safe at home: Yes Do you feel safe in your relationship?: Yes
== END 2023-10-30 16:07 | disposition home or self-care (01) ==
PROVIDERS: Emergency Provider Physician Assistant; PCP Family Medicine
DX: R07.9 Chest pain, unspecified (principal); R06.02 Shortness of breath; I10 Essential (primary) hypertension; E78.5 Hyperlipidemia, unspecified; Z87.891 Personal history of nicotine dependence
CPT/HCPCS: 80053; 83690; 93005; 99285; 71046; 84484; 85025; 93010; 99284

== ENCOUNTER → 2023-11-06 01:48 | Outpatient (CLI) | payer BC, SELFPAY ==
--- NOTE | 2023-11-06 07:30 | ETT_ITS ---
APPROVED REPORT Exam: Exercise Treadmill Patient Location: Out-Patient Room/Bed: Stress Nurse: Radha Melendez RN Ordering Provider:SUSHILA RICHTER, Contact Number: [phone] BMI: 30.34 Baseline Rhythm: Sinus Rhythm Indications: chest pain Medical History Medical History: HTN, HLD, GERD, Epilepsy, Chest Pain Cardiac Medications: Losartan, pantoprazole, carbamazepine, divalproex, HCTZ Allergies: NKA Cardiac Risk Factors: Family Hx, HTN, HLD Previous Cardiac Procedures: None Pretest Chest Pain Characteristics: None Exercise History: Sedentary Physical Disabilities: None Lung Sounds: Clear to auscultation Heart Sounds: Regular Stress Test Details Test: Exercise stress testing was performed using a Pelon protocol. Rest Stress HR Resting HR Supine: 67 bpm Max Heart Rate (APMHR): 164 bpm Resting HR Standin bpm Target HR (85% APMHR): 139 bpm Max HR Achieved: 141 bpm % of APMHR: 86 Recovery HR: 88 bpm HR response to stress: Normal HR response to stress BP Resting BP Supine: 134/98 mmHg Resting BP Standin/90 mmHg Max BP: 160/88 mmHg Recovery BP: 128/88 mmHg BP response to stress: Normal blood pressure response to stress. ECG Resting ECG: Sinus Rhythm Ectopy: none Stress ECG: Sinus Rhythm ST Change: No significant ST segment changes noted Arrhythmia: None Recovery ECG: Sinus Rhythm Recovery ST Change: No significant ST segment changes noted Recovery Arrhythmia: None Clinical Reason for Termination: Fatigue Stress Symptoms: None Exercise duration: 6 min44 sec Highest Stage Reached: Stage 3: 3.4 mph at 14% grade. Exercise capacity: 8.19 METs Workman Treadmill Score: 5.4 Rate Pressure Product: [id number] Stress ECG Conclusion 1. Resting electrocardiogram was within normal limits 2. Patient exercised on the Pelon protocol, completed a workload of 8.19 Mets stopping due to fatigue 3. Normal heart rate and blood pressure response to exercise. Patient achieved 86% of maximal predic molly heart rate for age 4. There was no electrocardiographic evidence of myocardial ischemia 5. There were no dysrhythmias Workman Treadmill Score is 5.4 which is Low risk. Stress Test Summary STAGE Time (mins) Speed (mph) Grade (%) HR BP SpO2 SYMPTOMS METS Supine 67 134/98 98 Standing 79 124/90 98 1 3 1.7 10 106 134/90 98 4.5 2 6 2.5 12 129 160/88 96 7 1 min recovery 119 154/70 95 3 min recovery 90 148/82 98 6 min recovery 88 128/88 98
== END ==
PROVIDERS: PCP Family Medicine; Visit Provider Nurse Practitioner Family
DX: R07.9 Chest pain, unspecified (principal)
CPT/HCPCS: 93017

== ENCOUNTER 2024-07-28 13:00 | Outpatient (REF) | payer BC, SELFPAY ==
[2024-07-28 20:54] LABS: Bilirubin Negative (Negative); Blood Trace-intact (Negative); Clarity Clear (Clear); Glucose Negative (Negative); Ketones Negative (Negative); Leukocyte Esterase Negative (Negative); Nitrite Negative (Negative); Urobilinogen 0.2 mg/dL (Up to 0.2)
[2024-07-28 21:01] LABS: Bacteria Negative HPF (Negative); C & S Indicated? No; Epithelial Cells Few HPF (Negative); Mucus Trace (Negative)
[2024-07-28 21:04] LABS: Abs Immature Grans 0.02 10^3/uL (0.0-0.06); Absolute Basophil Count 0.09 10^3/uL (0.0-0.2); Absolute Eosinophil Count 0.49 10^3/uL (0.0-0.7); Absolute Lymphocyte Count 1.97 10^3/uL (1.2-3.4); Absolute Neutrophil Count 3.16 10^3/uL (1.2-6.7); Basophils % 1.4 %; Eosinophils % 7.9 %; HCT 43.8 % (40.0-50.0); HGB 14.3 g/dL (13.5-17.5); Immature Grans % 0.3 %; Lymphocytes % 31.6 %; MCH 29.9 pg (27.0-33.0); MCHC 32.6 % (32.0-36.0); MCV 91 fL (80-95); MPV 10.7 fL (8.0-11.0); Neutrophils % 50.8 %; Platelet Count 225 10^3/uL (130-400); RBC 4.79 10^6/uL (4.36-5.78); RDW 12.7 % (11.8-14.1); RDW-SD 42.7 fL; WBC 6.23 10^3/uL (4.4-10.8)
[2024-07-28 21:09] LABS: ALT 27 U/L (16-63); AST 25 U/L (15-37); Albumin 3.8 g/dL (3.4-5.0); Alkaline Phosphatase 68 U/L (46-116); Anion Gap 11.9 mmol/L (3-11); BUN 19 mg/dL (7-18); Bilirubin, Total 0.35 mg/dL (0.2-1.0); CO2 25.1 mmol/L (21.0-32.0); Chloride 106 mmol/L (98-107); Estimated GFR 87.78 (mL/min/1.73m2); Glucose 94 mg/dL (74-106); Potassium 3.9 mmol/L (3.5-5.1); Sodium 143 mmol/L (136-145); Total Protein 7.6 g/dL (6.4-8.2)
== END 2024-07-28 13:01 | disposition home or self-care (01) ==
LOC: LBN 13:00
PROVIDERS: PCP Family Medicine; Visit Provider Nurse Practitioner Family
DX: R31.9 Hematuria, unspecified (principal); G40.909 Epilepsy, unspecified, not intractable, without status epilepticus; R30.0 Dysuria
CPT/HCPCS: 80053; 81003; 81015; 85025

== ENCOUNTER 2024-08-23 14:03 | Outpatient (CLI) | payer BC, SELFPAY ==
[2024-08-23 14:17] LABS: Estimated GFR 87.78 (mL/min/1.73m2)
[2024-08-23 16:07] LABS: TROPONIN-I 4.3 ug/mL (4.0-12.0)
[2024-08-24 10:12] LABS: PSA, Screening 0.8 ng/mL (<=3.5)
== END 2024-08-23 14:04 | disposition home or self-care (01) ==
LOC: LBO 14:04
PROVIDERS: Psychiatry & Neurology Neurology; PCP Family Medicine; Visit Provider Nurse Practitioner Gerontology
DX: R39.9 Unspecified symptoms and signs involving the genitourinary system (principal); R31.9 Hematuria, unspecified; G40.909 Epilepsy, unspecified, not intractable, without status epilepticus
CPT/HCPCS: 36415; 84153; 80156; 80164; 82565

== ENCOUNTER 2024-11-16 14:26 | Outpatient (CLI) | payer BC, SELFPAY ==
--- NOTE | 2024-11-16 13:47 | DI.RAD_ITS ---
Exam(s) XR CHEST 2V PA LATERAL EXAM: XR CHEST 2V PA LATERAL CLINICAL HISTORY: Cough, R05.9, eval pna TECHNIQUE: 2D digital imaging was performed of the chest. Two images were obtained. PA and lateral views were obtained. COMPARISON: CR XR CHEST 2V PA LATERAL from 10/30/2023 FINDINGS: MEDIASTINUM: Normal. HEART: Normal. PULMONARY VASCULATURE: Normal. LUNGS: Clear. PLEURAL SPACE: No pleural effusion or pneumothorax. BONE:Within normal limits for the patient's age. OTHER FINDINGS:Normal. IMPRESSION: No acute pulmonary findings. DATA REPOSITORY: RADIATION DOSE DELIVERED:
== END 2024-11-16 14:46 ==
LOC: DI 14:27
PROVIDERS: PCP Family Medicine; Visit Provider Nurse Practitioner Family
DX: R05.9 Cough, unspecified (principal)
CPT/HCPCS: 71046

== ENCOUNTER 2025-08-10 01:35 | Outpatient (CLI) | payer OTHER, SELFPAY ==
[2025-08-10 10:32] LABS: Cholesterol 216 mg/dL (<200); HDL Cholesterol 40 mg/dL (>40)
[2025-08-10 10:56] LABS: D-Dimer 1062 ng/mlFEU (<500)
== END 2025-08-10 01:36 | disposition home or self-care (01) ==
LOC: LBO 01:39
PROVIDERS: PCP Family Medicine; Visit Provider Family Medicine
DX: M79.89 Other specified soft tissue disorders (principal); E78.5 Hyperlipidemia, unspecified; I10 Essential (primary) hypertension
CPT/HCPCS: 36415; 80061; 82565; 85379

== ENCOUNTER 2025-08-19 09:08 | Emergency (ER) | payer OTHER, SELFPAY ==
[2025-08-19] VITALS (18 sets, daily range): BP systolic 113–150; BP diastolic 81–91; PULSE 53–85; RESP 11–28; TEMP 36.7; O2SAT 94–100
--- NOTE | 2025-08-19 09:00 | RT.EKG_ITS ---
APPROVED REPORT Exam: Resting ECG Reason for Exam: chest pain Patient Location: E HR:65 bpm ECG Measurements Heart Rate 65 AXIS MI 184 P 34 QRSd 104 QRS 74 QT 374 T 27 QTc 391 Conclusion Sinus rhythm...normal P axis, V-rate 60- 99
--- NOTE | 2025-08-19 09:15 | DI.RAD_ITS ---
Exam(s) XR PORTABLE CHEST AP EXAM: XR PORTABLE CHEST AP CLINICAL HISTORY: Chest pain TECHNIQUE: 2D digital imaging was performed. COMPARISON: No exams were available for comparison FINDINGS: LUNGS: Clear. No pleural abnormality seen. HEART: Normal size. AORTA: Normal diameter. BONES: Unremarkable for age. Soft tissues: Unremarkable. IMPRESSION: No acute findings. DATA REPOSITORY: RADIATION DOSE DELIVERED:
--- NOTE | 2025-08-19 09:22 | W.ED.GENAD ---
Discharge Plan Disposition Patient Disposition: Home Condition: Stable Discharge Details Clinical Impression: Chest pain Primary Care Provider: Parish Russell ED Provider: Tiffanie Ellsworth Home Meds and New Rx's Prescriptions: Continued albuterol sulfate 90 mcg/actuation HFA aerosol inhaler 2 puff inhalation Q6H PRN (Reason: shortness of breath or wheezing) Qty: 6.7 0RF amlodipine 5 mg tablet 5 mg PO DAILY Qty: 30 3RF divalproex [Depakote ER] 500 mg tablet extended release 24 hr 1,000 mg PO DAILY Qty: 180 3RF carbamazepine 200 mg tablet extended release 12 hr 200 mg PO DAILY Qty: 90 3RF losartan 100 mg tablet 100 mg PO DAILY Qty: 90 3RF hydrochlorothiazide 12.5 mg tablet 12.5 mg PO DAILY Qty: 90 3RF pantoprazole 40 mg tablet,delayed release (DR/EC) 40 mg PO BID Qty: 180 3RF Rx Instructions: dose increase 01/07/23 Xarelto 10 mg tablet 10 mg PO DAILY Qty: 42 0RF Rx Instructions: for 6 weeks to treat extensive superficial thrombophlebitis Discharge Instructions Instructions: Troponin Test, Chest Pain, Adult ED Additional Instructions: At this time the cardiac work up is negative. No evidence for heart attack, aneurysm, or blood clot in your lung. However, please follow up with your primary care provider for further testing such as a stress test or echocardiogram if continued pain. Follow up with primary care provider in 3-5 days. Return to ED sooner if any worsening or concerns. Stand Alone Forms: Portal Information Referrals: Parish Russell MD [Primary Care Provider, Medicine] - 5 days Referral Note: ER follow-up, call for an appointment Clinical Impression: Chest pain Discharge Data Discharge Date/Time-TO BE ENTERED AT DEPARTURE: 08/19/25 11:06 HPI General Mode of arrival: ambulatory. Date/Time Provider Initiated Documentation: 08/19/25 09:14. Limitations to Documentation: no limitations. Information obtained by: patient, RN notes reviewed and old records reviewed. HPI Narrative: 60-year-old male presents to the ER with a chief complaint left-sided chest pain for at least 2 days. He describes the pain as pressure, has become more steady, it was there upon wakening this morning. He does note that he does have some numbness in his left arm. Denies any headache or blurry vision, denies any nausea vomiting, denies cough does endorse mild SOB this am, denies diaphoresis. He is a non-smoker. He was recently started on Rivaroxaban for a DVT in his leg. Denies any drugs or alcohol. Related Data Home Medications ?Medication ?Instructions ?Recorded ?Confirmed divalproex 500 mg tablet,extended 1,000 mg (2 x 500 mg) PO DAILY 11/08/24 08/19/25 release 24 hr (Depakote ER) #180 tab-caps albuterol sulfate 90 mcg/actuation 2 puff inhalation Q6H PRN 11/16/24 08/19/25 aerosol inhaler shortness of breath or wheezing #6.7 grams carbamazepine 200 mg 200 mg PO DAILY #90 tab-caps 11/28/24 08/19/25 tablet,extended release,12 hr losartan 100 mg tablet 100 mg PO DAILY #90 tabs 12/17/24 08/19/25 hydrochlorothiazide 12.5 mg tablet 12.5 mg PO DAILY #90 tabs 02/17/25 08/19/25 pantoprazole 40 mg tablet,delayed 40 mg PO BID #180 tab-caps 06/18/25 08/19/25 release amlodipine 5 mg tablet 5 mg PO DAILY #30 tabs 08/09/25 08/19/25 rivaroxaban 10 mg tablet (Xarelto) 10 mg PO DAILY thrombophlebitis 08/11/25 08/19/25 #42 tabs Previous Rx's ?Medication ?Instructions ?Recorded divalproex 500 mg tablet,extended 1,000 mg (2 x 500 mg) PO DAILY 11/08/24 release 24 hr (Depakote ER) #180 tab-caps albuterol sulfate 90 mcg/actuation 2 puff inhalation Q6H PRN 11/16/24 aerosol inhaler shortness of breath or wheezing #6.7 grams carbamazepine 200 mg 200 mg PO DAILY #90 tab-caps 11/28/24 tablet,extended release,12 hr losartan 100 mg tablet 100 mg PO DAILY #90 tabs 12/17/24 hydrochlorothiazide 12.5 mg tablet 12.5 mg PO DAILY #90 tabs 02/17/25 pantoprazole 40 mg tablet,delayed 40 mg PO BID #180 tab-caps 06/18/25 release amlodipine 5 mg tablet 5 mg PO DAILY #30 tabs 08/09/25 rivaroxaban 10 mg tablet (Xarelto) 10 mg PO DAILY thrombophlebitis 08/11/25 #42 tabs Allergies Allergy/AdvReac Type Severity Reaction Status Date / Time No Known Allergies Allergy Verified 08/19/25 09:39 General Stated Complaint: Chest Pain XAVIER: 2 Review of Systems All systems reviewed & are unremarkable except as noted in HPI and below Cardiovascular Cardiovascular: Reports as per HPI and Reports chest pain Exam Narrative Exam Narrative: Constitutional: Alert and oriented x3. Appears stated age. Normal body habitus. Head: Normocephalic, no trauma. Eyes: Pupils PERRL, Red reflex noted, EOM's intact. Eyelids symmetrical without lesions, discharge, or swelling. ENT: Bilateral TM's WNL, External ear normal to inspection, no mastoid TTP, swelling, or erythema, Nasal turbinates WNL, no nasal discharge. Poor dentition, Posterior pharynx WNL, no exudate. Chest: RRR, Normal S1, S2, distal pulses intact. Resp: Lungs clear to auscultation bilaterally, no wheezes, rales, or rhonchi. Abdomen: Soft, non-distended, Normoactive bowel sounds all 4 quads. Musculoskeletal: Normal gait, Moves all 4 extremities without difficulty. Skin: No suspicious rashes or lesions. Capillary refill less than 2 sec. Neurologic: Cranial nerves II-XII intact. Alert and oriented x 3. Motor: No deficits noted. Sensory: Intact bilaterally all 4 extremities. Hematologic/Lymphatic: No ecchymosis, no lymphadenopathy. Course Vital Signs Vital signs: Vital Signs Temperature 36.7 C 08/19/25 09:12 Pulse 65 08/19/25 09:12 Respiratory Rate 16 08/19/25 09:12 Blood Pressure 149/91 H 08/19/25 09:12 Pulse Oximetry 98 08/19/25 09:12 Temperature 36.7 C 08/19/25 09:12 Temperature Source Tympanic 08/19/25 09:12 Pulse 65 08/19/25 09:12 Respiratory Rate 16 08/19/25 09:12 Blood Pressure 149/91 H 08/19/25 09:12 Pulse Oximetry 98 08/19/25 09:12 Oxygen Delivery Method Room Air 08/19/25 09:12 Oxygen Flow Rate 0 08/19/25 09:12 Medical Decision Making 60-year-old male presents to the ER with a chief complaint left-sided chest pain for at least 2 days. He describes the pain as pressure, has become more steady, it was there upon wakening this morning. He does note that he does have some numbness in his left arm. Denies any headache or blurry vision, denies any nausea vomiting, denies cough does endorse mild SOB this am, denies diaphoresis. He is a non-smoker. He was recently started on Rivaroxaban for a DVT in his leg. Denies any drugs or alcohol. Work up ordered including serial troponins, CXR, EKG was reviewed by Dr. Gerber Penn and myself ER attending, old EKG available for review, no ST elevation or ischemic changes , please see official report. Negative cardiac workup at this time, negative Chest CT for PE, discussed results with patient. He verbalizes understanding. Patient discharged with instructions to follow-up with PCP. He remained hemodynamically stable throughout the remainder of his stay. This text was generated using [employer] Vari[employer] system, please disregard any oddities of phrase or misspellings. Medical Records Medical records reviewed: Yes I reviewed the patient's medical records. Lab Data Lab results reviewed: Yes I reviewed the patient's lab results. Labs: Laboratory Tests Range/Units 08/19/25 08/19/25 08/19/25 09:26 10:24 12:15 WBC (4.4-10.8) 10^3/uL 6.63 RBC (4.36-5.78) 10^6/uL 4.58 Hgb (13.5-17.5) g/dL 13.5 Hct (40.0-50.0) % 40.7 MCV (80-95) fL 89 MCH (27.0-33.0) pg 29.5 MCHC (32.0-36.0) % 33.2 RDW (11.8-14.1) % 11.9 Plt Count (130-400) 10^3/uL 242 MPV (8.0-11.0) fL 10.1 Immature Gran % % 0.3 Neutrophils % % 48.4 Lymphocytes % % 33.2 Monocytes % % 10.7 Eosinophils % % 6.2 Basophils % % 1.2 Nucleated RBC % (0.0-0.3) % 0.0 Absolute Neutrophils (1.2-6.7) 10^3/uL 3.21 Absolute Lymphocytes (1.2-3.4) 10^3/uL 2.20 Absolute Monocytes (0.1-0.8) 10^3/uL 0.71 Absolute Eosinophils (0.0-0.7) 10^3/uL 0.41 Absolute Basophils (0.0-0.2) 10^3/uL 0.08 PT (9.1-11.1) sec 12.2 H INR (0.9-1.1) 1.2 H APTT (20.6-30.2) sec 32.9 H Sodium (136-145) mmol/L 142 Potassium (3.5-5.1) mmol/L 3.6 Chloride (98-107) mmol/L 105 Carbon Dioxide (20.0-31.0) mmol/L 28.4 Anion Gap (3-11) mmol/L 8.6 BUN (9-23) mg/dL 17 Creatinine (0.73-1.18) mg/dL 0.86 Est GFR (CKD-EPI 2020) (mL/min/1.73m2) 91.27 Glucose (74-106) mg/dL 89 Calcium (8.3-10.6) mg/dL 9.2 Magnesium (1.6-2.6) mg/dL 2.0 Total Bilirubin (0.2-1.2) mg/dL 0.4 AST (<34) U/L 28 ALT (10-49) U/L 23 Alkaline Phosphatase (46-116) U/L 73 Troponin I (<54) ng/L < 3 < 3 Cancelled Total Protein (5.7-8.2) g/dL 7.8 Albumin (3.2-5.0) g/dL 4.5 Lipase (<53) U/L 32 PFSH All Active Problems (Updated 08/19/25 @ 10:57 by Tiffanie Ellsworth NP) Chest pain (Acute) Superficial phlebitis (Acute) Left leg swelling (Acute) Left eye pain (Acute) BPH w urinary obs/LUTS (Acute) Tinea pedis (Acute) Hematuria (Acute) Neck pain (Acute) Umbilical hernia (Acute) JAMISON-inhibitor cough (Acute) Tendonitis of long head of biceps brachii of right shoulder (Acute) Right rotator cuff tendonitis (Acute) DEPO MEDROL 10/24/22 Shoulder pain, right (Acute) Acute viral syndrome (Acute) Screening for colon cancer (Acute) Hypertension (Chronic) Internal derangement of right knee (Acute) Right medial knee pain (Acute) Epilepsy (Acute) Venous stasis ulcer (Acute) Encephalitis (Acute) Abdominal pain (Acute) Erectile disorder due to medical condition in male (Acute) Headache (Acute) ? 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) Surgical History History of esophagogastroduodenoscopy (EGD) (~07/06/18) EGD - MAC (07/24/16) [facility] [place] [facility]GD - MAC (04/02/13) [facility] [place] Family History Father Epilepsy Grandfather Personal history of malignant neoplasm COLON Grandmother Diabetes FAMILY HISTORY Diabetes Heart disease Social History Smoking/Tobacco Use Status: Former Tobacco Use Quit Date: 09/08/14 Tobacco: How many years used: 40 Smokeless tobacco user: snuff Quit status: quit date established Smoking risk assessment performed?: Yes Alcohol Intake: current Alcohol Intake frequency: a few times a month Alcohol type: beer Drug use: Never Substance use type: does not use Adopted: No Caregiver/Support person: No Household members: significant other Housing: house Number of Children: 3 number of grandchildren: 5 Communication Needs: Hard of Hearing Education Level: high school Do you need help understanding health information?: Rarely current occupation: [employer] Pets and animals: No Sexually active: Yes Do you think of yourself as: straight/heterosexual Current gender identity: male What is your relationship status?: How often do you talk on the phone with friends or family?: once per week How often do you get together with friends or relatives?: once per week How often do you attend zoroastrian or worship services?: 1-3 times per year Do you belong to any clubs or organized social groups?: no Panel score (0-1 are the most socially isolated patients): 0 What type of physical activity do you participate in: none and decline to answer Duration: decline to answer Frequency: decline to answer Lilibeth/Zoroastrianism: None Seatbelt use: sometimes Helmet use: Yes Helmet use: always Drive intox or ride w/intox non cdl driver: No Working smoke detector in home: Yes Carbon monox detector in home: Yes Do you feel safe at home: Yes Do you feel safe in your relationship?: Yes
[2025-08-19 09:36] LABS: Abs Immature Grans 0.02 10^3/uL (0.0-0.06); HCT 40.7 % (40.0-50.0); HGB 13.5 g/dL (13.5-17.5); Immature Grans % 0.3 %; MCH 29.5 pg (27.0-33.0); MCHC 33.2 % (32.0-36.0); MCV 89 fL (80-95); MPV 10.1 fL (8.0-11.0); Platelet Count 242 10^3/uL (130-400); RBC 4.58 10^6/uL (4.36-5.78); RDW 11.9 % (11.8-14.1); RDW-SD 38.5 fL; WBC 6.63 10^3/uL (4.4-10.8)
--- NOTE | 2025-08-19 09:45 | DI.CT_ITS ---
Exam(s) CT CHEST PE CTA EXAM: CT CHEST PE CTA CLINICAL HISTORY: Chest pain, Hx of blood clots in legs. TECHNIQUE: Imaging Protocol: Axial CT angiography was performed with multi- slice acquisition and multi-planar reconstructions as well as axial, coronal and sagittal MIP reconstructions. Computer aided detection (CAD) was utilized. CONTRAST MATERIAL: Intravenous: Omnipaque 350 Contrast volume:100 ml COMPARISON: CT CT THORACIC SPINE W from 07/02/2020 CR XR PORTABLE CHEST AP from 08/19/2025 FINDINGS: Pulmonary Arteries: No evidence of filling defect to suggest pulmonary emboli. Mediastinum and Lisa: No dominant adenopathy or fluid collection. Pulmonary parenchyma: No consolidation or dominant measurable mass. Pleura: No effusion or pneumothorax. Heart: The heart is not dilated. No coronary artery calcifications are seen. Aorta: Thoracic aorta non-dilated. No dissection. Upper abdomen: No acute findings. Bones: Stable mild T8 compression fracture. Tubes, Catheters, and Lines: None Soft tissues: Unremarkable. IMPRESSION: No evidence of pulmonary embolism or other acute abnormality. RADIATION DOSE DELIVERED: 119.83mGy.cm Total DLP DATA REPOSITORY: All CT scans at this facility are submitted to the National Radiology Data Registry (NRDR) Dose Index Registry (DIR) with the [employer] (ACR). RADIATION OPTIMIZATION: All CT scans at this facility use at least one of these dose optimization techniques: automated exposure control; mA and/or kV adjustment per patient size (includes targeted exams where dose is matched to clinical indication); or iterative reconstruction.
[2025-08-19 09:50] LABS: INR 1.2 (0.9-1.1); PTT Activated 32.9 sec (20.6-30.2); Prothrombin Time 12.2 sec (9.1-11.1)
[2025-08-19 09:51] LABS: Lipase 32 U/L (<53); Magnesium 2.0 mg/dL (1.6-2.6)
[2025-08-19 09:52] LABS: ALT 23 U/L (10-49); AST 28 U/L (<34); Albumin 4.5 g/dL (3.2-5.0); Alkaline Phosphatase 73 U/L (46-116); Anion Gap 8.6 mmol/L (3-11); BUN 17 mg/dL (9-23); Bilirubin, Total 0.4 mg/dL (0.2-1.2); CO2 28.4 mmol/L (20.0-31.0); Calcium 9.2 mg/dL (8.3-10.6); Chloride 105 mmol/L (98-107); Glucose 89 mg/dL (74-106); Potassium 3.6 mmol/L (3.5-5.1); Sodium 142 mmol/L (136-145); Total Protein 7.8 g/dL (5.7-8.2)
[2025-08-19 09:54] LABS: Troponin I < 3 ng/L (<54)
[2025-08-19] MEDS: Normal Saline - Diluent 50 ML VIAL IJ (09:59)
[2025-08-19] MEDS: Normal Saline Flush 10 ML SYR IVP (09:59)
[2025-08-19] MEDS: Omnipaque 350 MG/ML 500 ML BTL-Imaging package IJ (10:00)
[2025-08-19 10:51] LABS: Troponin I < 3 ng/L (<54)
== END 2025-08-19 11:06 | disposition home or self-care (01) ==
PROVIDERS: Emergency Provider Registered Nurse Emergency; PCP Family Medicine
DX: R07.9 Chest pain, unspecified (principal); R20.2 Paresthesia of skin; E78.5 Hyperlipidemia, unspecified; Z86.718 Personal history of other venous thrombosis and embolism; Z79.02 Long term (current) use of antithrombotics/antiplatelets; Z87.891 Personal history of nicotine dependence
CPT/HCPCS: 36415; 71275; 80053; 83690; 93005; 99285; 71045; 83735; 84484; 85025; 85610; 85730; 93010